=== PATIENT | female | born 1995 | race Caucasian/White ===

== ENCOUNTER 2016-07-05 18:40 | Emergency (ER) | payer OTHER ==
[~2016-07-05] VITALS: Ht 170.2 cm; Wt 78.0 kg
[~2016-07-05 18:40] MED LIST: BCPILLS PO; OMEP10CA2 PO
[2016-07-05 19:03] VITALS: BP 128/78; PULSE 57; TEMP 37; O2SAT 98; Ht 170.2 cm; Wt 78.0 kg
--- NOTE | 2016-07-05 20:08 | DIAGNOSTIC IMAGING REPORT ---
RIGHT ELBOW 3 VIEWS CLINICAL HISTORY: Right arm injury. FINDINGS: 3 views of the right elbow are obtained. No prior studies are available for comparison at the time of dictation. The skeletal structures are well mineralized. No fracture is seen. The joint spaces of the elbow are well-maintained. No joint effusion is identified. Mild soft tissue edema is seen posteriorly. IMPRESSION: Mild soft tissue swelling with no radiographic evidence of right elbow fracture. Electronically signed by: Eliseo Galvez M.D. 07/05/2016 8:06 PM Dictated Date/Time: 07/05/2016 8:05 PM
--- NOTE | 2016-07-05 20:09 | DIAGNOSTIC IMAGING REPORT ---
RIGHT FOREARM 2 VIEWS CLINICAL HISTORY: Right arm injury. FINDINGS: AP and lateral views of the right forearm are obtained. No prior studies are available for comparison at the time of dictation. The skeletal structures are well mineralized. No fracture is seen. The wrist and elbow joints appear maintained. Dorsal soft tissue edema is noted. IMPRESSION: Soft tissue swelling with no evidence of forearm fracture. Electronically signed by: Eliseo Galvez M.D. 07/05/2016 8:07 PM Dictated Date/Time: 07/05/2016 8:06 PM
--- NOTE | 2016-07-05 20:19 | EMERGENCY ROOM VISIT NOTE ---
ED Visit Note First contact with patient: 19:05 CHIEF COMPLAINT: Right Elbow injury HISTORY OF PRESENT ILLNESS: This 21-year-old female presents the ER with chief complaint of right elbow injury. The patient states that she fell Monday night injuring her right elbow. She states she went to an urgent care on Monday and they did an x-ray and told her they didn't "think it was broken". They placed her in a sling. The patient states that it is not getting any better. She denies any numbness and tingling in her fingers. The patient denies any prior injury to her right elbow. The patient denies any wrist or shoulder pain. The patient is right-hand dominant. She has never seen an orthopedic surgeon in the past. REVIEW OF SYSTEMS: 6 system review was performed and was negative unless stated otherwise in history of present illness. PMH: The patient is healthy; asthma, appendectomy SOCIAL HISTORY: Patient lives with her mother. The patient denies tobacco use but admits to occasional alcohol use. PHYSICAL EXAM: Vital Signs: Were reviewed Reviewed nurse's notes. GEN.: 21-year -old white female appears in no acute distress. MENTAL Status: Alert and oriented 3. RIGHT SHOULDER: No gross bony deformity noted. Nontender to palpation throughout. Full range of motion. RIGHT ELBOW: No gross bony deformity noted. The patient has tenderness to palpation over the olecranon process and slight tenderness palpation over the lateral epicondyle. Limited range of motion secondary to pain. RIGHT WRIST: No gross bony deformity noted. Full range of motion. The patient does have tenderness to palpation over the distal third of the ulna. EMERGENCY DEPARTMENT COURSE: The patient was evaluated. X-ray of the right elbow and right forearm for ordered and interpreted by the radiologist and myself. DIAGNOSTICS:RIGHT ELBOW 3 VIEWS CLINICAL HISTORY: Right arm injury. FINDINGS: 3 views of the right elbow are obtained. No prior studies are available for comparison at the time of dictation. The skeletal structures are well mineralized. No fracture is seen. The joint spaces of the elbow are well-maintained. No joint effusion is identified. Mild soft tissue edema is seen posteriorly. IMPRESSION: Mild soft tissue swelling with no radiographic evidence of right elbow fracture. Electronically signed by: Eliseo Galvez M.D. 07/05/2016 8:06 PM Dictated Date/Time: 07/05/2016 8:05 PM RIGHT FOREARM 2 VIEWS CLINICAL HISTORY: Right arm injury. FINDINGS: AP and lateral views of the right forearm are obtained. No prior studies are available for comparison at the time of dictation. The skeletal structures are well mineralized. No fracture is seen. The wrist and elbow joints appear maintained. Dorsal soft tissue edema is noted. IMPRESSION: Soft tissue swelling with no evidence of forearm fracture. Electronically signed by: Eliseo Galvez M.D. 07/05/2016 8:07 PM Dictated Date/Time: 07/05/2016 8:06 PM The patient was informed of the findings. The patient already has a sling from urgent care. The patient was informed of the findings and discharged home in stable condition. DIAGNOSIS: Right elbow and forearm contusion DISCHARGE INSTRUCTIONS & TREATMENT: Rest the arm in a sling until the pain subsides. Ibuprofen 600 mg every 6 hours with food for pain. If symptoms are not improving in 3-4 days, follow-up with your family doctor or orthopedics. Current/Historical Medications Scheduled Control Pills ( Control Pills), 1 TAB PO DAILY Allergies Coded Allergies: No Known Allergies (Unverified , 09/21/15) Vital Signs Date Time Temp Pulse Resp B/P Pulse Ox O2 Delivery O2 Flow Rate FiO2 07/05/16 19:03 37.0 57 18 128/78 98 Room Air Departure Information Referrals No Doctor, Assigned (PCP) Patient Instructions [facility]
== END 2016-07-05 20:32 | disposition home or self-care (01) ==
LOC: C.EDB 18:41 → C.EDD 20:32
DX: S59.901A Unspecified injury of right elbow, initial encounter (principal); W19.XXXA Unspecified fall, initial encounter; J45.909 Unspecified asthma, uncomplicated; Z90.49 Acquired absence of other specified parts of digestive tract; Z79.3 Long term (current) use of hormonal contraceptives

== ENCOUNTER → 2017-02-08 | Outpatient (CLI) | payer OTHER ==
[~2017-02-08] MED LIST changes: -OMEP10CA2 PO
== END | disposition home or self-care (01) ==
LOC: C.PAPS 12:59
PROVIDERS: ATTEND Nurse Practitioner Adult Health
DX: Z12.39 Encounter for other screening for malignant neoplasm of breast (principal)

== ENCOUNTER 2018-10-24 08:12 | Inpatient (IN) ==
--- NOTE | 2018-10-24 08:24 | History & Physical Report ---
Date of Service October 24, 2018 Assessment & Plan (1) Encounter for induction of labor: Pt is a 23 year old at 40+6 with a OBHx of RH negative status s/p rhogam at 28+1 on 07/27/2018, presenting for induction of labor /2 to post dates - FHT reassuring Cat 1 tracing - LR @ 125 - Pitocin 30 units in 500 mls @ 1 mls/hr -> up by 2 - Monitor FHT/toco - Monitor BP - Routine labor care - Anticipate Vaginal , Expectant management - Rhogam - Left calf pain likely MSK in origin, continue to monitor History of Present Illness Chief Complaint: IOL Primary Care Provider: NO PCP Pt is a 23 year old with lmp of 01/11/2018 and EDC of 10/18/2018 confirmed by 1st trimester ultrasound on 03/22/2018 at 9+4 who presents at 40+6 for induction of labor 07/21 post dates. Pt had kumar bulb placed in her cervix on the evening of 10/24/2018 to assist with cervical dilation. Kumar remained in place overnight. Currently she reports feeling regular contractions approximately 4 minutes apart, they are becoming progressively stronger. She currently denies nausea, vomiting, RUQ pain, swelling, headache, blurred vision, vaginal bleeding, n egative for rupture of membranes, or decreased movement. course was significant RH- mother, given Rhogam at 28+1 on 07/27/2018, plan to give second dose . Last cervical exam was 1/thick/high on 10/23/18, vertex presentation. Pt resting comfortably in bed no acute complaints with dad at the bedside, all questions were answered labs hCG Positive: 02/14/2018 First Visit: 8+5 Weight Gain: 20.3 lbs A- antibody neg Last HGB: 10.6 09/29/2018 DM screen:143 07/27/2018 GTT:FBS:79 1H:131 2H:106 08/13/2018 Rubella Immune HIV neg Pap neg @ [facility] 02/2017 Last U/S 07/23/18 echo: Liu Breech, no obvious abruption EFW 20% 1020gm, Normal Echo EGA:40+6 BP Range 102/80-130/86 U/A: No growth GBS negative RPR Negative HBsAG Negative GC/ Chlamydia negative Allergies Allergy/AdvReac Type Severity Reaction Status Date / Time No Known Allergies Allergy Verified 10/23/18 19:46 Patient History Medical History and not yet delivered Acute appendicitis (Resolved) Asthma Surgical History History of tonsillectomy Family History Other No significant family history Social History Preferred Language: Estonian Communication Ability: Effective Beliefs That Will Affect Care: None marital status: Single Current Living Situation: Significant Other Other Information That Helps Us Care for You: No Feels Safe at Home: Yes Smoking Status: Never smoker Second Hand Exposure: No Hx Alcohol Use: No Hx Substance Use: No OB History hCG Positive on 02/14/2018, not on BC at conception, taking PNV throughout [employer] History GYNHX: menarche @ 17, monthly cycles 30-35 days, normal amount and duration, neg pap, no hx PID or STDS PMHX: tonsillectomy, appendectomy, Asthma-Albuterol PRN Allergies: NKDA Physical Exam Constitutional: WD/WN, vitals as above no acute distress Eyes: normal visual santillan by confrontation Neck: normal visual inspection Respiratory: normal respiratory effort, lungs clear to auscultation Cardiovascular: RRR, no murmur, no edema Heart Sounds: normal S1 and normal S2 Extremities: + calf tenderness (left sided , likely msk in nature ); no pedal edema Gastrointestinal (Abdomen): gravid belly Skin: no rashes, warm and dry Psychiatric: A+Ox3, euthymic affect Results & Data Vital Signs (Past 12 Hours) Vital Signs Pulse BP 10/24/18 08:17 90 132/61 Code Status & VTE Plan Code Status Full Code VTE Prophylaxis Plan VTE Prophylaxis will be ordered: Yes Monitoring External Monitor HR 140 Accels present Decels none Variability moderate Contractions: present, regular, roughly every 4 minutes Cat 1 Supervising Physician Co-Signing Physician Notes Resident Physician Supervision Note: I interviewed and examined the patient. Discussed with Dr. Sandy Khan and agree with findings and plan as documented in the note. Any exceptions or clarifications are listed here: [None] Documented By: Frances Dasilva MD, FACOG Resident Activity Tracking Resident Involvement: Resident Care Provided Care Provided: Adult Hospital Medicine
[2018-10-24] MEDS ORDERED: LACTATED RINGER'S 1,000 ML IV PRN ×3 (08:57→19:55)
[2018-10-24] MEDS ORDERED: OXYTOCIN 30 UNITS/500 ML BAG IV PRN ×2 (08:57→08:58)
[2018-10-24] MEDS ORDERED: LACTATED RINGER'S 1,000 ML IV SCH (09:00)
[2018-10-24 09:27] LABS: Hematocrit (blood only) 31.3 % (37-47); Hemoglobin 10.1 g/dL (12.0-16.0); Mean Corpuscular Volume 77.3 fL (80-100); Mean Platelet Volume 10.6 fL (7.4-10.4); Platelet Count 202 K/uL (130-400); RDW Standard Deviation 42.4 fL (36.4-46.3); Red Blood Count 4.05 M/uL (4.2-5.4); White Blood Count 14.15 K/uL (4.8-10.8)
[2018-10-24 09:32] LABS: Mean Corpuscular Hgb Conc 32.3 g/dL (32-36)
[2018-10-24] MEDS ORDERED: ACETAMINOPHEN 325 MG TAB PO STA (16:23)
[2018-10-24] MEDS: LACTATED RINGER'S 1,000 ML IV SCH ×2 (17:33→20:06)
[2018-10-24] MEDS ORDERED: fentaNYL citrate 100 MCG/2 ML VIAL ONE (18:10)
[2018-10-24] MEDS ORDERED: BUPIVACAINE 0.25% 30 ML VIAL ONE (18:10)
[2018-10-24] MEDS ORDERED: ePHEDrine sulfate 50 MG/ML AMP ONE (18:10)
[2018-10-24] MEDS ORDERED: fentaNYL 2MCG/ML ROPIV 1.25MG/ML 100 ML BAG EPI ONE (18:11)
--- NOTE | 2018-10-24 18:39 | Anesthesiology Consultation ---
Date of Service October 24, 2018 Assessment & Plan Chart Review Chart Review: Acceptable Risk for Surgery and Patient NOT seen in Pre Admission Testing Consults Requested none ASA ASA2 Proposed Anesthesia Anesthesia Type: Labor Epidural Risk / Benefits Reviewed With: PT / POA / Parent / Guardian, Accepts Plan and Informed Consent Obtained History Height/Weight Height: 5 ft 5 in Weight: 97.069 kg Allergies Allergy/AdvReac Type Severity Reaction Status Date / Time No Known Allergies Allergy Verified 10/23/18 19:46 Medications Home Medications Medication Instructions Recorded Confirmed Last Taken vit-iron fum-folic ac 1 tab PO DAILY 10/24/18 10/24/18 10/23/18 21:00 [ Vitamin] Active Medications Generic Name Dose Route Start Last Admin Trade Name Freq PRN Reason Stop Dose Admin Oxytocin 30 units in 500 mls @ 11 mls/hr 10/24/18 08:58 10/24/18 15:00 Pitocin IV 10/26/18 08:57 0.66 units/hr .Q24H PRN 11 mls/hr Labor Induction/Augmentation Titration Protocol 0.66 UNITS/HR Lactated Ringer's 1,000 mls @ 125 mls/hr 10/24/18 09:15 10/24/18 17:33 Lr IV 11/23/18 09:14 125 mls/hr .Q8H CONRADO Administration Lactated Ringer's 1,000 mls @ 125 mls/hr 10/24/18 09:00 10/24/18 16:34 Lr IV 10/26/18 08:59 Infused .Q8H CONRADO Infusion Lactated Ringer's 1,000 mls @ 999 mls/hr 10/24/18 08:57 10/24/18 16:34 Lr IV 11/23/18 08:56 999 mls/hr .Q1H1M PRN Administration Pre-Anesthesia NPO Date Last Intake of Fluids: 10/24/18 Time Last Intake of Fluids: 07:00 Date Last Intake of Solids: 10/24/18 Time Last Intake of Solids: 07:00 Past Medical History Medical History and not yet delivered Acute appendicitis (Resolved) Asthma Exercise / Class Metabolic Activity II 4-5 Yardwork/Stairs/Walk up hill Past Family History Family History Other No significant family history Past Surgical History Surgical History History of tonsillectomy Past Anesthesia History No Hx of Anesthesia Complications and No Family Hx of Anesthesia Complications History of PONV No Hx of PONV and No Hx of Motion Sickness Social History Smoking Status: Never smoker Hx Alcohol Use: No Hx Substance Use: No substance use type: does not use Physical Exam Vital Signs Last Vital Signs Temp 36.8 C 10/24/18 15:03 Pulse 80 10/24/18 18:31 Resp 18 10/24/18 17:30 BP 112/64 10/24/18 18:09 Pulse Ox 98 10/24/18 18:31 Constitutional + obese ENMT Mouth: no dentition abnormality Thyromental Distance: > or= 3.5 Finger Breadths Mallampati Class: II Neck normal visual inspection and trachea midline; neck extension not limited Respiratory normal respiratory effort Auscultation: lungs clear to auscultation bilaterally Cardiovascular Rate/Rhythm: regular rate and regular rhythm Heart Sounds: no murmur Musculoskeletal Spine: lumbar spine normal to inspection; normal cervical ROM Neurologic moves all extremities Motor/Sensory: no sensory deficit Psychiatric Orientation: alert and oriented x 3 Testing Laboratory Results 10/24/18 09:16
[2018-10-24] MEDS ORDERED: DiphenhydrAMINE HCL 50 MG/ML VIAL IV PRN (19:55)
[2018-10-24] MEDS ORDERED: NALOXONE HCL 1 MG in SODIUM CHLORIDE 0.9% 1000ML 1,000 ML IV PRN (19:55)
[2018-10-24] MEDS ORDERED: NALBUPHINE HCL INJ 10 MG/ML AMP IV PRN (19:55)
[2018-10-24] MEDS ORDERED: ePHEDrine sulfate 50 MG/ML AMP IV PRN (19:55)
[2018-10-24] MEDS ORDERED: ONDANSETRON INJ 2 MG/ML 2 ML VIAL IV PRN (19:55)
[2018-10-24] MEDS ORDERED: NALOXONE HCL 0.4 MG/1 ML VIAL/CARP IV PRN (19:55)
[2018-10-25] MEDS: fentaNYL 2MCG/ML ROPIV 1.25MG/ML 100 ML BAG EPI PRN ×3 (01:57→06:25)
[2018-10-25] MEDS ORDERED: Nursing to Pharmacy Communication ONE (02:24)
[2018-10-25] MEDS: LACTATED RINGER'S 1,000 ML IV SCH (04:09)
--- NOTE | 2018-10-25 07:50 | Obstetrical Progress Note ---
Date of Service October 25, 2018 Assessment & Plan (1) Post term over 40 weeks: Patient will begin her second stage. Subjective Patient states that she is feeling Change of shift note: The patient is a 23-year-old 1 para 0 at 41 weeks gestational age who was admitted on 8 mainly for postdates induction. The patient has been on Pitocin with an intrauterine pressure catheter. Epidural was placed. heart rate tracing has been category 2. Patient states that she is feeling pressure with contractions Physical Exam Genitourinary: OB Exam Monitor Tracing: + category II and + normal FHT variability Cervix: Complete/(+)1 Results & Data Vital Signs (Past 12 Hours) Vital Signs Temp Pulse Resp BP Pulse Ox 10/25/18 07:45 126 H 150/88 H 10/25/18 07:43 104 H 97 10/25/18 07:38 100 H 97 10/25/18 07:33 101 H 99 10/25/18 07:30 88 128/71 10/25/18 07:28 96 H 95 10/25/18 07:23 101 H 96 10/25/18 07:18 104 H 97 10/25/18 07:14 95 H 143/81 H 10/25/18 07:13 96 H 97 10/25/18 07:10 98.4 F 18 10/25/18 07:08 101 H 96 10/25/18 07:03 94 H 97 10/25/18 07:00 96 H 136/68 10/25/18 06:58 89 95 10/25/18 06:53 99 H 99 10/25/18 06:48 88 94 10/25/18 06:44 88 118/57 L 10/25/18 06:43 88 94 10/25/18 06:38 92 H 96 10/25/18 06:33 87 95 10/25/18 06:29 90 18 116/60 10/25/18 06:28 102 H 95 10/25/18 06:23 111 H 95 10/25/18 06:18 103 H 95 10/25/18 06:16 18 10/25/18 06:15 107 H 117/56 L 10/25/18 06:13 88 96 10/25/18 06:08 97 H 96 10/25/18 06:03 86 93 10/25/18 05:59 83 111/61 10/25/18 05:58 82 95 10/25/18 05:53 86 93 10/25/18 05:48 88 96 10/25/18 05:44 99 H 118/65 10/25/18 05:43 95 H 95 10/25/18 05:38 101 H 96 10/25/18 05:34 98.6 F 97 H 20 94 10/25/18 05:33 96 H 96 10/25/18 05:29 104 H 118/67 10/25/18 05:28 98 H 97 10/25/18 05:23 99 H 96 10/25/18 05:18 90 95 10/25/18 05:15 18 10/25/18 05:14 98 H 121/65 10/25/18 05:13 96 H 97 10/25/18 05:12 110 H 93 10/25/18 05:08 91 H 95 10/25/18 05:06 93 H 94 10/25/18 05:03 84 95 10/25/18 05:00 86 113/63 94 10/25/18 04:58 87 95 10/25/18 04:55 83 94 10/25/18 04:53 91 H 95 10/25/18 04:48 90 96 10/25/18 04:45 87 16 116/69 10/25/18 04:43 86 96 10/25/18 04:38 89 97 10/25/18 04:33 99 H 96 10/25/18 04:32 92 H 112/58 L 10/25/18 04:28 90 97 10/25/18 04:23 94 H 97 10/25/18 04:18 90 97 10/25/18 04:14 90 120/62 10/25/18 04:13 92 H 97 10/25/18 04:10 97.9 F 18 10/25/18 04:08 107 H 97 10/25/18 04:03 111 H 16 97 10/25/18 03:59 103 H 128/60 10/25/18 03:58 98 H 95 10/25/18 03:57 97 H 94 10/25/18 03:53 105 H 95 10/25/18 03:51 105 H 92 10/25/18 03:48 100 H 96 10/25/18 03:44 99 H 120/58 L 10/25/18 03:43 96 H 95 10/25/18 03:39 91 H 94 10/25/18 03:38 94 H 95 10/25/18 03:33 94 H 94 10/25/18 03:29 96 H 117/59 L 10/25/18 03:28 91 H 95 10/25/18 03:27 93 H 94 10/25/18 03:23 95 H 94 10/25/18 03:21 93 H 94 10/25/18 03:18 90 94 10/25/18 03:16 93 H 94 10/25/18 03:15 89 117/59 L 10/25/18 03:13 91 H 95 10/25/18 03:09 87 94 10/25/18 03:08 88 94 10/25/18 03:03 96 H 95 10/25/18 03:02 92 H 94 10/25/18 02:59 90 115/59 L 10/25/18 02:58 89 95 10/25/18 02:54 93 H 94 10/25/18 02:53 86 94 10/25/18 02:48 88 96 10/25/18 02:45 94 H 123/69 10/25/18 02:44 87 91 10/25/18 02:43 99 H 97 10/25/18 02:38 88 95 10/25/18 02:33 85 95 10/25/18 02:30 86 18 118/62 10/25/18 02:28 79 97 10/25/18 02:23 92 H 96 10/25/18 02:18 84 97 10/25/18 02:14 92 H 132/72 10/25/18 02:13 89 99 10/25/18 02:12 98.4 F 87 18 93 10/25/18 02:08 85 100 10/25/18 02:03 91 H 99 10/25/18 01:59 91 H 106/58 L 10/25/18 01:58 81 97 10/25/18 01:53 83 98 10/25/18 01:48 84 98 10/25/18 01:44 90 105/57 L 10/25/18 01:43 82 97 10/25/18 01:38 79 97 10/25/18 01:34 98.2 F 18 10/25/18 01:33 82 98 10/25/18 01:29 97 H 112/58 L 10/25/18 01:28 85 98 10/25/18 01:23 90 96 10/25/18 01:18 84 96 10/25/18 01:14 100 H 113/58 L 10/25/18 01:13 81 96 10/25/18 01:08 74 97 10/25/18 01:03 81 96 10/25/18 01:00 88 16 115/57 L 10/25/18 00:58 89 96 10/25/18 00:53 84 96 10/25/18 00:48 85 95 10/25/18 00:44 98 H 16 117/58 L 10/25/18 00:43 106 H 97 10/25/18 00:38 108 H 97 10/25/18 00:33 81 96 10/25/18 00:29 94 H 16 115/56 L 10/25/18 00:28 71 96 10/25/18 00:23 76 97 10/25/18 00:18 79 95 10/25/18 00:15 91 H 122/59 L 10/25/18 00:13 82 96 10/25/18 00:08 86 97 10/25/18 00:03 74 96 10/25/18 00:01 86 16 110/56 L 10/24/18 23:58 78 95 10/24/18 23:53 83 96 10/24/18 23:48 69 96 10/24/18 23:45 73 113/55 L 10/24/18 23:43 74 97 10/24/18 23:38 71 97 10/24/18 23:37 98.2 F 18 10/24/18 23:33 82 96 10/24/18 23:29 88 112/55 L 10/24/18 23:28 78 97 10/24/18 23:23 79 96 10/24/18 23:18 80 96 10/24/18 23:14 84 16 119/61 10/24/18 23:13 82 97 10/24/18 23:08 80 96 10/24/18 23:03 77 96 10/24/18 22:59 81 113/60 10/24/18 22:58 85 96 10/24/18 22:55 92 H 94 10/24/18 22:53 75 98 10/24/18 22:48 83 96 10/24/18 22:45 85 129/70 10/24/18 22:43 100 H 96 10/24/18 22:38 80 98 10/24/18 22:33 98.2 F 82 18 97 10/24/18 22:29 73 117/61 10/24/18 22:28 81 97 10/24/18 22:23 72 96 10/24/18 22:18 73 97 10/24/18 22:15 73 114/59 L 10/24/18 22:13 77 97 10/24/18 22:08 77 97 10/24/18 22:03 72 98 10/24/18 22:00 72 107/56 L 10/24/18 21:58 70 97 10/24/18 21:53 71 97 10/24/18 21:48 75 97 10/24/18 21:45 71 111/56 L 10/24/18 21:43 79 97 10/24/18 21:38 84 97 10/24/18 21:33 90 97 10/24/18 21:29 89 147/70 H 10/24/18 21:28 92 H 98 10/24/18 21:23 83 97 10/24/18 21:18 79 97 10/24/18 21:15 83 16 109/66 10/24/18 21:13 88 97 10/24/18 21:08 82 97 10/24/18 21:05 98.2 F 18 10/24/18 21:03 80 96 10/24/18 21:00 85 118/60 10/24/18 20:58 86 98 10/24/18 20:53 95 H 97 10/24/18 20:48 85 98 10/24/18 20:46 89 139/77 10/24/18 20:43 86 97 10/24/18 20:38 89 97 10/24/18 20:33 91 H 97 10/24/18 20:30 77 113/57 L 10/24/18 20:28 83 18 97/53 L 97 10/24/18 20:23 86 97 10/24/18 20:22 77 130/63 10/24/18 20:18 92 H 97 10/24/18 20:16 86 126/75 10/24/18 20:13 96 H 98 10/24/18 20:10 98.4 F 88 123/68 10/24/18 20:08 92 H 97 10/24/18 20:07 90 126/70 10/24/18 20:04 91 H 124/57 L 10/24/18 20:03 86 95 10/24/18 20:01 93 H 124/59 L 10/24/18 19:58 92 H 131/62 96 10/24/18 19:55 86 118/59 L 10/24/18 19:53 96 H 96 10/24/18 19:51 97 H 120/62 10/24/18 19:49 101 H 127/70 10/24/18 19:48 98.1 F 93 H 16 96
[2018-10-25] MEDS ORDERED: OXYCODONE/ACETAMINOPHEN 5mg/325mg TAB PO PRN (09:30)
[2018-10-25] MEDS ORDERED: SUPERCREAM 0.870% 15 GM JAR EXT PRN (09:30)
[2018-10-25] MEDS ORDERED: OXYTOCIN 30 UNITS/500 ML BAG IV PRN (09:30)
[2018-10-25] MEDS ORDERED: ACETAMINOPHEN 325 MG TAB PO PRN (09:30)
[2018-10-25] MEDS ORDERED: BISACODYL 10 MG SUPP PR PRN (09:30)
[2018-10-25] MEDS ORDERED: HYDROCORTISONE ACETATE 25 MG SUPP PR PRN (09:30)
[2018-10-25] MEDS ORDERED: BENZOCAINE 20% AER SPR 82.5 GM CAN EXT PRN (09:30)
--- NOTE | 2018-10-25 09:43 | Anesthesia Procedure Note ---
Date of Service October 25, 2018 Anesthesia Post Epidural Note Vital Signs Vital Signs: Temp Pulse Resp BP Pulse Ox 36.9 C 98 H 18 129/61 99 10/25/18 07:10 10/25/18 09:33 10/25/18 07:10 10/25/18 09:16 10/25/18 09:33 Pain Intensity Bilateral Lower Abdomen: Pain Intensity: 0 Notes Mental Status: alert / awake / arousable and participated in evaluation Nausea / Vomiting: adequately controlled Pain: adequately controlled Airway Patency, RR, SpO2: stable & adequate BP & HR: stable & adequate Hydration State: stable & adequate Neuraxial Anesthesia: was administered and sensory block is resolving Anesthetic Complications: no major complications apparent Epidural: Removed without complications and With tip intact
[2018-10-25] MEDS: IBUPROFEN 600 MG TAB PO PRN (12:20)
--- NOTE | 2018-10-25 13:03 | Delivery Summary ---
DATE OF OPERATION: 10/25/2018 The patient is a 23-year-old 1, P0, EDC of 10/18/2018 who presented for induction because of post-dates . She received a cervical balloon placement the night of 10/23. She represented to labor and delivery for continuance of the induction. She was begun on Pitocin augmentation of her labor. Membranes were ruptured for copious amount of clear fluid after her epidural analgesia was effective. An IUPC was placed to ensure uterine contractions were consistently strong enough. She progressed to full dilation and pushed effectively over intact perineum for delivery of a viable female infant. There was a true knot noted in the cord. Rest of delivered easily and was placed on mother's abdomen for further attention and drying. The infant was vigorous and crying and moving all 4 limbs. After 30 seconds, the cord was clamped and cut. After cord blood was obtained, the placenta was expressed intact with 3-vessel cord. A first-degree perineal laceration was repaired with 3-0 chromic in the usual fashion and 1% lidocaine to anesthetize the area. There was bilateral superficial abrasions of the labia minora that were not bleeding and therefore not repaired. Estimated blood loss was 250 mL. Mother and infant are doing well after delivery. Dilute Pitocin was used for control of bleeding. I attest to the content of the Intraoperative Record and any orders documented therein. Any exception s are noted below.
[2018-10-25] MEDS: DOCUSATE SODIUM 100 MG CAP PO SCH (20:27)
[2018-10-26] MEDS: IBUPROFEN 600 MG TAB PO PRN ×3 (03:42→13:44)
--- NOTE | 2018-10-26 07:23 | Obstetrical Progress Note ---
Date of Service October 26, 2018 Assessment & Plan (1) Status post vaginal delivery: Patient is a 23 year old PPD 1 s/p -Vital signs WNL bp 107/61 T37.1, -[id number] on admission. no si/sx of anemia. -Pt is doing clinically well -Continue to encourage ambulation as tolerated, Monitor and control pain with motrin prn, Continue diet as tolerated. -Continue to support and encourage breast feeding -Routine care Supervising Physician Co-Signing Physician Notes Resident Physician Supervision Note: I was present with Dr. Khan during the history and exam. I discussed the case with the resident and agree with the findings and plan as documented in the note. Any exceptions or clarifications are listed here: Routine care, doing well Documented By: Jc Underwood Jr, MD, FACOG Subjective Patient sitting up in bed feeding baby this orning. Patient reports no acute events overnigh. Patient is tolerating her diet, ambulating, passing gas and voiding, no bm. Reports moderate lochia. Denies H/A, chest pain, palpitations and uti syx. Answered all questions, no concerns at present, pain is well controlled Physical Exam Physical Exam: deferred 2/2 to pt request as she was feeding her baby Constitutional: WD/WN, vitals as above Eyes: normal visual santillan by confrontation Results & Data Vital Signs (Past 12 Hours) Vital Signs Temp Pulse Resp BP Pulse Ox 10/26/18 03:30 37.1 C 88 18 107/61 97 10/26/18 00:50 37.0 C 98 H 18 114/67 96 Resident Activity Tracking Resident Involvement: Resident Care Provided Care Provided: Adult Hospital Medicine
[2018-10-26 07:26] LABS: Hematocrit (blood only) 23.1 % (37-47); Hemoglobin 7.5 g/dL (12.0-16.0); Mean Corpuscular Hgb Conc 32.5 g/dL (32-36); Platelet Count 172 K/uL (130-400); RDW Coefficient of Variation 15.2 % (11.5-14.5); RDW Standard Deviation 43.3 fL (36.4-46.3); White Blood Count 17.01 K/uL (4.8-10.8)
[2018-10-26] MEDS: PRENATAL VITAMIN 1 TAB PO SCH (08:35)
[2018-10-26] MEDS: DOCUSATE SODIUM 100 MG CAP PO SCH ×2 (08:35→20:34)
[2018-10-26] MEDS ORDERED: DIPHTHERIA/TETANUS/PERTUSSIS 0.5 ML SYR/VIAL IM ONE (09:00)
--- NOTE | 2018-10-26 14:00 | Anesthesiology Progress Note ---
Date of Service October 26, 2018 Anesthesia Post Procedure Vital Signs Vital Signs: Temp Pulse Pulse Resp BP BP Pulse Ox 10/26/18 09:27 36.7 C 89 16 117/64 97 10/26/18 08:00 36.7 C 89 75 16 117/64 119/56 L 97 10/26/18 03:30 37.1 C 88 18 107/61 97 10/26/18 00:50 37.0 C 98 H 18 114/67 96 10/25/18 19:20 36.7 C 94 H 18 108/59 L 10/25/18 15:05 36.7 C 84 18 120/64 Pain Intensity Bilateral Lower Abdomen: Pain Intensity: 4 Transfer of Care Handoff Completed per policy Notes Mental Status: alert / awake / arousable and participated in evaluation Pain: adequately controlled Airway Patency, RR, SpO2: stable & adequate BP & HR: stable & adequate Hydration State: stable & adequate Neuraxial Anesthesia: was administered and sensory block resolved Anesthetic Complications: no major complications apparent and Pt Satisfied with anesthetic care Notes: Pt has been up walking without numbness, tingling or weakness in her legs. She reports some heaviness in her bottom - but this is unlikely to be from the epidural. Epidural site is clean and without evidence of bruising, bleeding or infection. The insertion site is tender, but the remainder of the patient's back is nontender to palpation. She denies headache. She reports that the epidural worked well and controlled her pain throughout labor and delivery. She does not have any questions or concerns at this time. Pt was instructed to contact the anesthesia department if she develops any future questions or concerns.
[2018-10-26] MEDS ORDERED: BISACODYL 5 MG TABEC PO SCH (20:00)
[2018-10-27] MEDS: IBUPROFEN 600 MG TAB PO PRN ×2 (02:59→11:38)
--- NOTE | 2018-10-27 06:27 | Obstetrical Progress Note ---
Date of Service October 27, 2018 Assessment & Plan (1) Status post vaginal delivery: ready for d/c home. fundus firm and contracted. instructions reviewed. f/u 6 wk pp check. Day #:: 2 Subjective Ambulation: ambulating normally Voiding: no voiding problems Diet Tolerance:: regular diet Lochia:: Small Feeding Type:: breast feeding doing well. ready to go home. had rhogam. breast feeding. Physical Exam Vital Signs (Past 24 Hours) Last Vital Signs Temp 98.1 F 10/27/18 00:45 Pulse 78 10/27/18 00:45 Resp 16 10/27/18 00:45 BP 111/63 10/27/18 00:45 Pulse Ox 96 10/27/18 00:45 Constitutional WD/WN, vitals as above Respiratory normal respiratory effort, lungs clear to auscultation Cardiovascular Rate/Rhythm: regular rate and regular rhythm Gastrointestinal (Abdomen) Inspection/Auscultation: abdomen normal to inspection Percussion/Palpation: abdomen soft fundus firm 1 above umbilicus, was higher before void. c/w other exam. Musculoskeletal nt calves. Psychiatric A+Ox3, euthymic affect
[2018-10-27 06:42] LABS: Hematocrit (blood only) 23.4 % (37-47); Hemoglobin 7.6 g/dL (12.0-16.0)
[2018-10-27] MEDS: DOCUSATE SODIUM 100 MG CAP PO SCH (09:25)
[2018-10-27] MEDS: PRENATAL VITAMIN 1 TAB PO SCH (09:25)
== END 2018-10-27 12:25 | disposition home or self-care (01) | DRG 807 ==
LOC: 4S1 08:12 → 4S2 10-25 12:11

== ENCOUNTER 2018-11-08 11:35 | Observation (INO) ==
[~2018-11-08 11:35] MED LIST changes: -BCPILLS PO; +METHYLERGONOVINE MALEATE 0.2 MG TAB PO SCH
--- NOTE | 2018-11-08 11:58 | Emergency Department Note ---
History of Present Illness General Chief complaint: Vaginal Bleeding Stated complaint: HEAVY BLEEDING Time Seen by Provider: 11/08/18 11:40 History of Present Illness This 23-year-old female presents to the ER with chief complaint of vaginal bleeding. The patient delivered her daughter vaginally on October 25. She states since that time she has had vaginal bleeding but last night and this morning she had a large amount of vaginal bleeding with some clots. She called her [employer] and they instructed her to come to the ER. The patient states she had some mild cramping with the vaginal bleeding but not now. She denies any nausea or vomiting. The patient denies any history of endometriosis or fibro ids. Home Medications Home Medications Medication Instructions Recorded Confirmed Type Vitamin 1 tab PO DAILY 10/24/18 11/08/18 History Allergies Allergy/AdvReac Type Severity Reaction Status Date / Time No Known Allergies Allergy Verified 11/08/18 12:01 Past Med/Surg History Medical History and not yet delivered (Resolved) Acute appendicitis (Resolved) Asthma Surgical History History of tonsillectomy Family History Other No significant family history Social History Preferred Language: American Communication Ability: Effective Beliefs That Will Affect Care: None marital status: Single Current Living Situation: Significant Other Feels Safe at Home: Yes Smoking Status: Never smoker Second Hand Exposure: No Hx Alcohol Use: No Hx Substance Use: No Review of Systems A total of 10 systems reviewed and were otherwise negative Physical Exam Vital Signs Vital Signs - 24 hr 11/08/18 11:37 11/08/18 14:06 Temperature 36.5 C Temperature Source Oral Sepsis Recent Fever Within 48 Hours No Sepsis Action Taken by Nursing No Action Required Pulse Rate 78 Pulse Rate [Right Finger] 72 Pulse Rhythm Regular Pulse Strength Normal Respiratory Rate 18 18 Respiratory Effort / Characteristics Non-Labored Spontaneous Non-Labored Spontaneous Respiratory Depth Normal Normal Respiratory Pattern Regular Blood Pressure 134/82 Blood Pressure [Right Arm] 128/78 Blood Pressure Mean 99 Blood Pressure Mean [Right Arm] 94 Blood Pressure Position Sitting Blood Pressure Position [Right Arm] Lying Pulse Oximetry 98 98 Oxygen Delivery Method Room Air Room Air GENERAL: 23-year-old white female appears in no acute distress. MENTAL Status: Alert and oriented x3. EYES: Conjunctiva without paleness noted. MOUTH: Mucosa is moist NECK: Supple, no lymphadenopathy noted. No carotid bruits noted. LUNGS: Clear auscultation without wheezes rales or rhonchi. CARDIAC: Regular rate and rhythm without murmur. Pulses is full and equal throughout. BACK: No CVA tenderness noted. ABDOMEN: Positive bowel sounds all 4 quadrants. Soft, mild tenderness palpation just inferior to the umbilicus otherwise nontender to palpation without organomegaly or masses. EXTREMITIES: No cyanosis or edema noted. Medical Decision Making Differential Diagnosis Retained placenta, endometriosis, fibroid Medical Records Attestation: I reviewed the patient's medical records. Home Medications Current Medication List: was personally reviewed by me Laboratory Data Attestation: I reviewed the patient's lab results. Result diagrams: 11/08/18 12:16 11/08/18 12:16 Lab Results 11/08/18 11/08/18 Range/Units 12:16 12:16 WBC 7.40 (4.8-10.8) K/uL RBC 3.97 L (4.2-5.4) M/uL Hgb 9.6 L (12.0-16.0) g/dL Hct 30.5 L (37-47) % MCV 76.8 L (80-100) fL MCH 24.2 L (25-34) pg MCHC 31.5 L (32-36) g/dL RDW Std Deviation 43.2 (36.4-46.3) fL RDW Coeff of Sherri 15.2 H (11.5-14.5) % Plt Count 374 (130-400) K/uL MPV 9.4 (7.4-10.4) fL Immature Gran % (Auto) 0.3 % Neut % (Auto) 67.5 % Lymph % (Auto) 26.4 % Calvert % (Auto) 3.1 % Eos % (Auto) 2.3 % Baso % (Auto) 0.4 % Immature Gran # (Auto) 0.02 (0.00-0.02) K/uL Neut # (Auto) 5.00 (1.4-6.5) K/uL Lymph # (Auto) 1.95 (1.2-3.4) K/uL Calvert # (Auto) 0.23 (0.11-0.59) K/uL Eos # (Auto) 0.17 (0-0.5) K/uL Baso # (Auto) 0.03 (0-0.2) K/uL Sodium 137 (136-145) mmol/L Potassium 3.9 (3.5-5.1) mmol/L Chloride 106 (98-107) mmol/L Carbon Dioxide 25 (21-32) mmol/L Anion Gap 6.0 (3-11) BUN 15 (7-18) mg/dl Creatinine 0.69 (0.6-1.2) mg/dl Est Cr Clr Drug Dosing 136.0 ml/min Est GFR ( Amer) 143.2 Est GFR (Non-Af Amer) 123.6 BUN/Creatinine Ratio 21.9 H (10-20) Glucose 81 (70-99) mg/dl Calcium 9.0 (8.5-10.1) mg/dl Phosphorus 3.5 (2.5-4.9) mg/dl Total Bilirubin 0.4 (0.2-1) mg/dl AST 11 L (15-37) U/L ALT 18 (12-78) U/L Alkaline Phosphatase 107 (45-117) U/L Total Protein 6.9 (6.4-8.2) gm/dl Albumin 3.1 L (3.4-5.0) gm/dl Globulin 3.8 (2.5-4.0) gm/dl Albumin/Globulin Ratio 0.8 L (0.9-2) Imaging Data Attestation: I personally reviewed and interpreted this imaging study as follows: Radiologist's Impression: S pelvic complete HISTORY: 23 years-old Female vaginal bleeding acute vaginal bleeding COMPARISON: Pelvic ultrasound 03/22/2018 TECHNIQUE: Multiple real-time sonographic images of the deep pelvic structures were obtained transabdominally assessing grayscale appearance, color and spectral flow FINDINGS: Anteflexed uterus appears heterogeneous and enlarged compatible with state and measures 14.9 x 6.4 x 9.1 cm. Endometrium is echogenic measuring 1.8 cm. Increased flow is noted about the fundal endometrium on several images suggestive of associated normal vascularity. Right ovary measures 2.1 x 1.4 x 2.1 cm and is unremarkable with arterial inflow and venous outflow documented. The left ovary measures 3.6 x 1.5 x 3.5 cm and is also unremarkable with arterial inflow and venous outflow documented. No significant free pelvic fluid. There is in ill-defined 1.3 x 0.9 cm het erogeneous mixed echogenicity focus about the mid endometrium with areas of internal flow noted suggestive of retained products of conception. IMPRESSION: 1. Findings suggest small focus of retained products of conception. Follow-up recommended. 2. Unremarkable sonographic appearance of the ovaries. The above report was generated using voice recognition software. It may contain grammatical, syntax or spelling errors. Electronically signed by: Basilio Hill M.D. 11/08/2018 2:11 PM Dictated: 11/08/18 1405 Transcribed: 11/08/18 1405 Blood Pressure Blood Pressure Findings: Normal blood pressure MDM Narrative The patient was evaluated. IV access was obtained. CBC and differential, renal profile was ordered. Pelvic ultrasound was ordered interpreted by the radiologist and myself as above. Labs were reviewed. The patient white count was normal. The patient's hemoglobin was 9.6 compared to 7.6 on October 27. Her hematocrit was 30.5 as compared to 23.4 on October 27. This is improving since her delivery of her daughter. Remainder labs are unremarkable. Ultrasound revealed a 1.3 x 0.9 cm heterogeneous mixed echogenicity in the mid endometrium suggestive of retained products of conception. Dr. Peres was consulted and she came to evaluate the patient. She is going to take the patient to the OR today. The patient is in agreement with treatment plan. Impression & Plan Hemorrhage due to retained products of conception Discharge Plan Visit Data Chief Complaint: Vaginal Bleeding Stated Complaint: HEAVY BLEEDING ED Provider: Gee Hurd ED Midlevel Provider: Anjana Mcrae Discharge Problem: Hemorrhage due to retained products of conception Patient Disposition: Admitted As Inpatient Condition: Good Forms Stand Alone Forms: My [employer] Prescriptions Prescriptions: No Action Vitamin 27 mg iron- 0.8 mg Tablet 1 tab PO DAILY RF: 0 Referrals Referrals: Sander Saab [Primary Care Provider] -
[2018-11-08 12:23] LABS: Basophils # (auto) 0.03 K/uL (0-0.2); Basophils % (auto) 0.4 %; Eosinophils # (auto) 0.17 K/uL (0-0.5); Eosinophils % (auto) 2.3 %; Hematocrit (blood only) 30.5 % (37-47); Hemoglobin 9.6 g/dL (12.0-16.0); Immature Granulocytes # (auto) 0.02 K/uL (0.00-0.02); Immature Granulocytes % (auto) 0.3 %; Lymphocytes # (auto) 1.95 K/uL (1.2-3.4); Lymphocytes % (auto) 26.4 %; Mean Corpuscular Hgb Conc 31.5 g/dL (32-36); Mean Corpuscular Volume 76.8 fL (80-100); Mean Platelet Volume 9.4 fL (7.4-10.4); Monocytes # (auto) 0.23 K/uL (0.11-0.59); Monocytes % (auto) 3.1 %; Neutrophils % (auto) 67.5 %; Platelet Count 374 K/uL (130-400); RDW Coefficient of Variation 15.2 % (11.5-14.5); RDW Standard Deviation 43.2 fL (36.4-46.3); Red Blood Count 3.97 M/uL (4.2-5.4)
[2018-11-08 12:47] LABS: Albumin Level 3.1 gm/dl (3.4-5.0); BUN Creatinine Ratio 21.9 (10-20); Est GFR (African American) 143.2; Est GFR (Non-African American) 123.6; Potassium 3.9 mmol/L (3.5-5.1)
[2018-11-08 12:50] LABS: Albumin Globulin Ratio 0.8 (0.9-2); Bilirubin,Total 0.4 mg/dl (0.2-1); Globulin 3.8 gm/dl (2.5-4.0); Phosphorus 3.5 mg/dl (2.5-4.9); Total Protein 6.9 gm/dl (6.4-8.2)
--- NOTE | 2018-11-08 14:12 | Ultrasound Report ---
US pelvic complete HISTORY: 23 years-old Female vaginal bleeding acute vaginal bleeding COMPARISON: Pelvic ultrasound 03/22/2018 TECHNIQUE: Multiple real-time sonographic images of the deep pelvic structures were obtained transabd ominally assessing grayscale appearance, color and spectral flow FINDINGS: Anteflexed uterus appears heterogeneous and enlarged compatible with state and measures 14 .9 x 6.4 x 9.1 cm. Endometrium is echogenic measuring 1.8 cm. Increased flow is noted about the stella l endometrium on several images suggestive of associated normal vascularity. Right ovary measures 2.1 x 1.4 x 2.1 cm and is unremarkable with arterial inflow and venous outflow d ocumented. The left ovary measures 3.6 x 1.5 x 3.5 cm and is also unremarkable with arterial inflow a nd venous outflow documented. No significant free pelvic fluid. There is in ill-defined 1.3 x 0.9 cm heterogeneous mixed echogenicity focus about the mid endometrium with areas of internal flow noted maya ggestive of retained products of conception. IMPRESSION: 1. Findings suggest small focus of retained products of conception. Follow-up recommended. 2. Unremarkable sonographic appearance of the ovaries. The above report was generated using voice recognition software. It may contain grammatical, syntax o r spelling errors. Electronically signed by: Basilio Hill M.D. 11/08/2018 2:11 PM
[2018-11-08] MEDS ORDERED: DOXYCYCLINE HYCLATE 100 MG CAP PO STA ×3 (15:42→18:33)
--- NOTE | 2018-11-08 15:44 | History & Physical Report ---
Date of Service November 08, 2018 Assessment & Plan (1) Status post vaginal delivery: Offered expectant management vs. D&C/E. r/b/se of both discussed . She wishes to proceed with surgery. The risks were discussed including bleeding requiring transfusion, infection, perforation of the uterus, need for further surgery as damage to surrounding structures, continued bleeding. Discussed the risk with any surgery including heart attack, blood clot, stroke , . Plan to go to the OR for D&C/E under ultrasound guidance to make sure all tissue is removed. consent reviewed and signed. History of Present Illness Chief Complaint: heavy vaginal bleeding Primary Care Provider: Sander Suero is a 23yowf who had an uncomplicated vaginal delivery on 10/25. She had very little bleeding PP. Last night she had sudden onset of very heavy bleeding where she filled 3 large pads in less than 5 minutes. this persisted for about 15 min and then stopped. Called the doctor detective automobile section and told to take ibuprofen. She had another episode of this type of bleeding this am and was instructed to come to the ED. Now she feels well. Has noted very little bleeding since the epidsode this am. Notes she has had a small amount of cramping just after both episodes, but none now. Notes no f/c/n/v. She is bottle feeding. H/H shows 9.6/30.5, improved from delivery, wbc-9.77 US--uterus c/w pp state, EM thickened 1.8cm with vasularity at the top most c/w retained poc. Allergies Allergy/AdvReac Type Severity Reaction Status Date / Time No Known Allergies Allergy Verified 11/08/18 12:01 Home Medications Home Medications Medication Instructions Recorded Confirmed Type Vitamin 1 tab PO DAILY 10/24/18 11/08/18 History Patient History Medical History and not yet delivered (Resolved) Acute appendicitis (Resolved) Asthma Surgical History History of tonsillectomy Family History Other No significant family history Social History Preferred Language: Chinese Communication Ability: Effective Beliefs That Will Affect Care: None marital status: Single Current Living Situation: Significant Other Feels Safe at Home: Yes Smoking Status: Never smoker Second Hand Exposure: No Hx Alcohol Use: No Hx Substance Use: No OB History as noted above 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 no observable active bleeding. Results & Data Vital Signs (Past 12 Hours) Vital Signs Temp Pulse Pulse Resp BP BP Pulse Ox 11/08/18 14:06 72 18 128/78 98 11/08/18 11:37 36.5 C 78 18 134/82 98
[2018-11-08] MEDS ORDERED: LACTATED RINGER'S 1,000 ML IV SCH ×2 (16:00→16:45)
[2018-11-08] MEDS ORDERED: MIDAZOLAM HCL 1 MG/ML 2ML VIAL ONE (16:02)
[2018-11-08] MEDS ORDERED: fentaNYL citrate 100 MCG/2 ML VIAL ONE (16:02)
--- NOTE | 2018-11-08 16:03 | Anesthesiology Consultation ---
Date of Service November 08, 2018 Assessment & Plan (1) Encounter for pre-operative examination: Chart Review Chart Review: Acceptable Risk for Surgery Consults Requested none ASA ASA2 Proposed Anesthesia Anesthesia Type: General Risk / Benefits Reviewed With: PT / POA / Parent / Guardian, Accepts Plan and Informed Consent Obtained History Surgery Operation Date: 11/08/18 15:05 Proposed Procedures p Dilation, Curretage and Evacuation - Lillie Peres MD, FACOG Height/Weight Height: 5 ft 5 in Weight: 82.9 kg Allergies Allergy/AdvReac Type Severity Reaction Status Date / Time No Known Allergies Allergy Verified 11/08/18 16:19 Medications Home Medications Medication Instructions Recorded Confirmed Last Taken Vitamin 1 tab PO DAILY 10/24/18 11/08/18 10/23/18 21:00 NPO Date Last Intake of Fluids: 11/08/18 Time Last Intake of Fluids: 13:30 Date Last Intake of Solids: 11/07/18 Time Last Intake of Solids: 20:00 Past Medical History Medical History and not yet delivered (Resolved) Acute appendicitis (Resolved) GERD (gastroesophageal reflux disease) Asthma Exercise / Class Metabolic Activity II 4-5 Yardwork/Stairs/Walk up hill Past Family History Family History Other No significant family history Past Surgical History Surgical History S/P appendectomy History of tonsillectomy Past Anesthesia History No Hx of Anesthesia Complications and No Family Hx of Anesthesia Complications History of PONV No Hx of PONV and No Hx of Motion Sickness Social History Smoking Status: Never smoker Hx Alcohol Use: No Hx Substance Use: No substance use type: does not use Physical Exam Vital Signs Last Vital Signs Temp 98.6 F 11/08/18 16:10 Pulse 71 11/08/18 16:10 Resp 14 11/08/18 16:10 BP 113/76 11/08/18 16:10 Pulse Ox 99 11/08/18 16:10 ENMT Mouth: no dentition abnormality Thyromental Distance: > or= 3.5 Finger Breadths Mallampati Class: II Neck normal visual inspection Respiratory normal respiratory effort Auscultation: lungs clear to auscultation bilaterally Cardiovascular Rate/Rhythm: regular rate and regular rhythm Testing Laboratory Results 11/08/18 12:16 11/08/18 12:16
[2018-11-08] MEDS ORDERED: METHYLERGONOVINE MALEATE 0.2 MG/ML AMP ONE (16:12)
[2018-11-08] MEDS ORDERED: ePHEDrine sulfate 50 MG/ML AMP IV PRN (16:21)
[2018-11-08] MEDS ORDERED: ATROPINE SULFATE 0.1 MG/ML 10ML SYR IV PRN (16:21)
[2018-11-08] MEDS ORDERED: fentaNYL citrate 100 MCG/2 ML VIAL IV PRN (16:21)
[2018-11-08] MEDS ORDERED: ONDANSETRON INJ 2 MG/ML 2 ML VIAL IV PRN (16:21)
[2018-11-08] MEDS ORDERED: LIDOCAINE HCL 2% 2 ML VIAL/AMP(20MG/ML) INFIL ONE (16:41)
[2018-11-08] MEDS ORDERED: PROPOFOL IV EMULSION 10 MG/ML 20 ML VIAL IV ONE (16:41)
[2018-11-08] MEDS ORDERED: SUCCINYLCHOLINE CHLORIDE 20 MG/ML 10 ML VIAL ONE (16:41)
[2018-11-08] MEDS ORDERED: ONDANSETRON INJ 2 MG/ML 2 ML VIAL ONE (16:41)
[2018-11-08] MEDS ORDERED: DEXAMETHASONE SOD INJ 4 MG/ML VIAL ONE (16:41)
[2018-11-08] MEDS ORDERED: ROCURONIUM BROMIDE 10 MG/ML 5 ML VIAL ONE (16:41)
[2018-11-08] MEDS ORDERED: ACETAMINOPHEN 650 MG SUPP PR PRN (16:45)
[2018-11-08] MEDS ORDERED: KETOROLAC 30 MG/ML VIAL IV PRN ×2 (16:45)
[2018-11-08] MEDS ORDERED: IBUPROFEN 200 MG TAB PO PRN (16:45)
[2018-11-08] MEDS ORDERED: MoRPHine SULFATE 4 MG/ML 1 ML CARP\\VIAL IV PRN (16:45)
[2018-11-08] MEDS ORDERED: ACETAMINOPHEN 325 MG TAB PO PRN (16:45)
[2018-11-08] MEDS ORDERED: MoRPHine SULFATE 10 MG/ML CARP/VIAL IV PRN (16:45)
[2018-11-08] MEDS ORDERED: KETOROLAC 30 MG/ML VIAL ONE (16:45)
[2018-11-08] MEDS ORDERED: OXYCODONE/ACETAMINOPHEN 5mg/325mg TAB PO PRN ×2 (16:45)
[2018-11-08] MEDS ORDERED: IBUPROFEN 600 MG TAB PO PRN (16:45)
[2018-11-08] MEDS ORDERED: MoRPHine SULFATE 2 MG/ML CARP IV PRN (16:45)
--- NOTE | 2018-11-08 16:45 | Post Operative Brief Note ---
Immediate Post Op Note v1 Date of Surgery November 08, 2018 Pre & Post Diagnosis Operation Date: 11/08/18 15:05 Pre-Op Diagnosis: Post Delivery probable retained products of conception Post-Op Diagnosis: Post Delivery retained products of conception Procedure Operation Date: 11/08/18 15:05 Actual Procedures p Dilation, Curretage and Evacuation with Guided Ultrasound - Lillie Peres MD, FACOG Surgeon Lillie Peres MD, FACOG Private Household Worker none Estimated Blood Loss 125 Findings Consistent with Post-Op Diagnosis
--- NOTE | 2018-11-08 17:30 | Anesthesiology Progress Note ---
Date of Service November 08, 2018 Anesthesia Post Procedure Vital Signs Vital Signs: Temp Pulse Pulse Resp BP BP Pulse Ox 11/08/18 17:25 37.1 C 57 L 20 101/59 L 99 11/08/18 17:15 53 L 16 97/53 L 100 11/08/18 17:05 61 17 100/57 L 100 11/08/18 16:56 36.8 C 75 16 88/71 L 99 11/08/18 16:10 37 C 71 14 113/76 99 11/08/18 16:00 62 18 114/63 98 11/08/18 15:57 62 18 114/63 98 11/08/18 14:06 72 18 128/78 98 11/08/18 11:37 36.5 C 78 18 134/82 98 Transfer of Care Handoff Completed per policy Notes Mental Status: alert / awake / arousable Patient Amnestic to Procedure: Yes Nausea / Vomiting: adequately controlled Pain: adequately controlled Airway Patency, RR, SpO2: stable & adequate BP & HR: stable & adequate Hydration State: stable & adequate Anesthetic Complications: no major complications apparent
[2018-11-08] MEDS ORDERED: CARBOPROST TROMETHAMINE 250 MCG/ML AMPUL IM ONE (18:40)
--- NOTE | 2018-11-08 18:51 | Communication Note ---
Date of Service: November 08, 2018 Was called by [facility] about concern for bleeding. Apparently has been through three pads since the OR. Evaluated patient. Vitals stable. Patient has a saturated pad but her chux is not. ON exam, there is not clot in the vagina. AM able to place a finger through cervix and can feel some clot in the uterus and a small bit of clot extruded with a slight, dark gush after exam. Firm pressure on the uterus and nothing further. Will give hemebate and check labs including vWD labs. Will continue to monitor closely.
[2018-11-08 19:23] LABS: Basophils # (auto) 0.03 K/uL (0-0.2); Basophils % (auto) 0.3 %; Eosinophils # (auto) 0.09 K/uL (0-0.5); Eosinophils % (auto) 0.9 %; Hematocrit (blood only) 29.6 % (37-47); Hemoglobin 9.6 g/dL (12.0-16.0); Immature Granulocytes # (auto) 0.02 K/uL (0.00-0.02); Immature Granulocytes % (auto) 0.2 %; Lymphocytes # (auto) 1.49 K/uL (1.2-3.4); Lymphocytes % (auto) 15.1 %; Mean Corpuscular Volume 76.1 fL (80-100); Mean Platelet Volume 9.7 fL (7.4-10.4); Neutrophils # (auto) 8.16 K/uL (1.4-6.5); Neutrophils % (auto) 82.5 %; Platelet Count 396 K/uL (130-400); RDW Coefficient of Variation 15.2 % (11.5-14.5); RDW Standard Deviation 42.8 fL (36.4-46.3); Red Blood Count 3.89 M/uL (4.2-5.4); White Blood Count 9.89 K/uL (4.8-10.8)
[2018-11-08 19:26] LABS: Mean Corpuscular Hgb Conc 32.4 g/dL (32-36)
[2018-11-08 20:08] LABS: Fibrinogen 386 mg/dl (184-400); INR 1.1 (0.9-1.1); Partial Thromboplastin Ratio 0.9; Partial Thromboplastin Time 25.6 Seconds (21.0-31.0); Prothrombin Time 11.1 Seconds (9.0-12.0)
--- NOTE | 2018-11-08 20:33 | Ultrasound Report ---
US pelvic complete CLINICAL HISTORY: continued vaginal bleeding s/p D E BLEEDING COMPARISON STUDY: 11/08/2018 1:14 PM FINDINGS: The uterus measured 12.6 cm. The endometrial stripe measured 2 cm. Possible clot versus polyp within the central canal measuring u p to 3 x 2.5 cm. The right ovary measured not evaluated. The left ovary measured not evaluated. There is no ultrasonographic evidence of ovarian torsion. It should be noted that ovarian torsion can be present with normal Doppler ultrasonographic findings. There was no evidence of pathologic free pelvic fluid. IMPRESSION: 1. Persistent prominence of the central uterine endometrial lining.. 2. Nodular-like focus of increased echogenicity within the central canal measuring 3 x 2.5 cm. 3. This potentially relates to thrombus versus clot within the central canal, versus residual product s of conception. A polypoid lesion based exclusively on this study cannot be completely excluded The above report was generated using voice recognition software. It may contain grammatical, syntax or spelling errors. Electronically signed by: Jarred Mcrae M.D. 11/08/2018 8:32 PM
--- NOTE | 2018-11-08 20:34 | Gynecologic Progress Note ---
Date of Service November 08, 2018 Assessment & Plan (1) Hemorrhage due to retained products of conception: She is NOT saturating pads and chux. I feel that her bleeding is actually getting better and lessening. However, it is probably a little more than normal. therefore, will observe overnight, get serial labs. Do not feel a need to go back to the OR for EUA and possible placement of kumar balloon. appears to have a reaction ot hemobate so will not give that however , will give methergine 0.2mg q 6 hrs for 24 hrs. Long conversation with patient and her . Discussed the situation if she bleeds heavily, would go back to or, and she understands if her bleeding cannot be stopped, she may need a hyster. They expressed understanding. Will keep npo for now. Subjective Called again by nursing noting "saturated pad and chux " again. She was given a dose of hemobate in left buttock and has some bruising at the site about 5cm. Patient notes that she feels really cramping now since hemobate. Notes no cp/sob/palpitations. She was able to get up to the BR and void. There was a very small clot in the toilet and a bit of pink blood. Review of Systems Review of Systems: All systems reviewed & are unremarkable except as noted in HPI & below Physical Exam Constitutional: WD/WN, vitals as above Genitourinary: ON examination of the chux and pad, it is indeed NOT saturated. The pad has some blood on but not filled or saturated. there is a small amount of blood on the chux, again, NOT saturated. Bedside ultrasound. There is probable clot in the uterus about 2x3cm. there appears to be no active bleeding and no fluid collection in the uterus. After the ultrasound, a small clot was passed. Her cbc is stable , coags nl, fibrinogen also normal. Results & Data Vital Signs (Past 12 Hours) Vital Signs Temp Pulse Pulse Resp BP BP Pulse Ox 11/08/18 19:40 36.7 C 68 18 125/72 98 11/08/18 19:23 36.6 C 75 18 112/64 97 11/08/18 18:50 36.5 C 63 18 105/65 97 11/08/18 18:20 36.5 C 59 L 18 108/58 L 98 11/08/18 17:46 36.8 C 63 18 108/57 L 96 11/08/18 17:35 37.1 C 61 19 107/58 L 97 11/08/18 17:25 37.1 C 57 L 20 101/59 L 99 11/08/18 17:15 53 L 16 97/53 L 100 11/08/18 17:05 61 17 100/57 L 100 11/08/18 16:56 36.8 C 75 16 88/71 L 99 11/08/18 16:10 37 C 71 14 113/76 99 11/08/18 16:00 62 18 114/63 98 11/08/18 15:57 62 18 114/63 98 11/08/18 14:06 72 18 128/78 98 11/08/18 11:37 36.5 C 78 18 134/82 98
[2018-11-08] MEDS: LACTATED RINGER'S 1,000 ML IV SCH (21:02)
[2018-11-08] MEDS: METHYLERGONOVINE MALEATE 0.2 MG TAB PO SCH (22:34)
--- NOTE | 2018-11-08 23:19 | Operative Report ---
DATE OF OPERATION: 11/08/2018 DATE OF PROCEDURE: 11/08/2018 PREOPERATIVE DIAGNOSES: 1. Vaginal bleeding, status post vaginal delivery. 2. Probable retained products of conception. POSTOPERATIVE DIAGNOSES: 1. Vaginal bleeding, status post vaginal delivery. 2. Retained products of conception. PROCEDURE: Dilation and evacuation with curettage. SURGEON: Lillie Peres MD ANESTHESIA: General per endotracheal tube. ESTIMATED BLOOD LOSS: 150 mL. URINE OUTPUT: 25 mL of clear yellow urine drained from the bladder at the end of the procedure. FLUIDS: 650 mL of lactated Ringer's. HISTORY: The patient is a 1, para 1 who delivered on 10/25/2018. It was uncomplicated. Placenta appeared intact per the operative report. She started having extremely heavy bleeding last night, after hardly any bleeding at all. She failed several pads in the space at 5 minutes. She had an episode of this this morning. She was sent to the Emergency Department where her H&H were found to be actually improved from delivery and ultrasound were consistent with retained products of conception. FINDINGS: Uterus was about 14-week size, it is sounded to about 12 cm under ultrasound guidance. Products of conception were removed from the uterus including a large piece of likely placenta. The uterus was found to be fairly clean at the end of the procedure per ultrasound. COMPLICATIONS: None. DRAINS: None. DISPOSITION: To recovery room in stable condition. DESCRIPTION OF PROCEDURE: The patient was taken to the operating room where she was identified verbally and by bracelet. She was placed in dorsal supine position where general anesthesia was induced without difficulty. She was then placed in dorsal lithotomy position in [facility]-cane stirrups and prepped and draped in normal sterile fashion. A time-out was held, identifying correct patient, procedure and positioning. An exam under anesthesia was performed with the above noted findings. The bladder was drained of urine. A weighted speculum was placed into the vagina and the anterior lip of the cervix was grasped with a single tooth tenaculum. Unfortunately, during the course of the procedure, the tenaculum tore off causing a laceration. The cervix was dilated to a #23 Hegar dilator. An 8 mm suction curette was placed into the uterus and under ultrasound guidance, a very large piece of placenta was removed. Curettage was done with sharp curetting without return of further products of conception. The suction curette was replaced into the uterus once more. Under ultrasound guidance, it appeared that all products had been removed. The patient was given 0.2 of IM Methergine by anesthesia. The instruments were removed from the vagina. The uterus was massaged and found to be firm with minimal bleeding. The laceration on the anterior lip of the cervix was reapproximated with [id number] suture of 3-0 Vicryl. All sponge, lap and needle counts were correct x2. The patient tolerated the procedure well and was taken to recovery room in stable condition. I attest to the content of the Intraoperative Record and any orders documented therein. Any exception s are noted below.
[2018-11-09 00:54] LABS: Hematocrit (blood only) 29.9 % (37-47); Hemoglobin 9.7 g/dL (12.0-16.0); Mean Corpuscular Hgb Conc 32.4 g/dL (32-36); Mean Corpuscular Volume 75.7 fL (80-100); Mean Platelet Volume 9.8 fL (7.4-10.4); Platelet Count 425 K/uL (130-400); RDW Standard Deviation 42.3 fL (36.4-46.3); Red Blood Count 3.95 M/uL (4.2-5.4); White Blood Count 9.85 K/uL (4.8-10.8)
[2018-11-09 01:08] LABS: Fibrinogen 372 mg/dl (184-400)
[2018-11-09] MEDS: LACTATED RINGER'S 1,000 ML IV SCH (05:26)
--- NOTE | 2018-11-09 06:04 | Gynecologic Progress Note ---
Date of Service November 09, 2018 Assessment & Plan (1) Hemorrhage due to retained products of conception: PLan d/c home this am. Doing well. Precautions given. Subjective Patient did well over night. Much less bleeding. Voiding without difficulty. Tolerated regular diet. h/h and fibrinogen stable. Review of Systems Review of Systems: All systems reviewed & are unremarkable except as noted in HPI & below Physical Exam Constitutional: WD/WN, vitals as above Gastrointestinal (Abdomen): soft, nt, nd Genitourinary: appropriate amount of bleeding on pad. Results & Data Vital Signs (Past 12 Hours) Vital Signs Temp Pulse Resp BP Pulse Ox 11/09/18 03:36 36.9 C 55 L 16 89/51 L 96 11/08/18 23:25 36.6 C 69 16 103/66 96 11/08/18 22:40 36.6 C 69 18 113/72 97 11/08/18 21:15 36.7 C 57 L 18 99/65 L 98 11/08/18 21:07 37.7 C H 64 18 100/65 97 11/08/18 20:45 37.7 C H 64 18 100/65 97 11/08/18 19:40 36.7 C 68 18 125/72 98 11/08/18 19:23 36.6 C 75 18 112/64 97 11/08/18 18:50 36.5 C 63 18 105/65 97 11/08/18 18:20 36.5 C 59 L 18 108/58 L 98
[2018-11-09] MEDS: METHYLERGONOVINE MALEATE 0.2 MG TAB PO SCH (09:22)
--- NOTE | 2018-11-09 09:29 | Discharge Summary ---
ADMIT DIAGNOSES: 1. Vaginal bleeding . 2. Retained products of conception. DISCHARGE DIAGNOSES: 1. Vaginal bleeding . 2. Retained products of conception. 3. Heavy bleeding post-procedure. PROCEDURES: Dilation and evacuation, and curettage. HISTORY OF PRESENT ILLNESS: The patient is a 23-year-old white female 1, para 1, who had an uncomplicated vaginal delivery on 10/25. She had very little bleeding . The night before admission, she had sudden onset of very heavy bleeding where she felt 3 large pads in less than 5 minutes. This persisted for about 50 minutes and then stopped. She called the doctor on-call, who told her to take ibuprofen. She had another episode of this type of bleeding this a.m. and was instructed to come to the ER. She felt well on admission, has noted very little bleeding since this episode. She notes a small amount of cramping after both episodes, but none on evaluation. Notes no fevers, chills, nausea, vomiting. She is bottle feeding. H and H shows 9.6/30.5 which is improved from delivery and white blood cell count is 9.77. Ultrasound shows a uterus consistent with state and the endometrium thickened 1.8 cm with vascularity at the top, most consistent with retained products of conception. For the rest of the patient's history and physical, please see her history and physical. ASSESSMENT: This is a 2-week patient with vaginal bleeding and likely retained products of conception. HOSPITAL COURSE: The patient was admitted. She underwent a dilation and evacuation and curettage under ultrasound guidance with removal of products of conception including a fairly large piece of placenta. The patient received IM Methergine in the operating room and she was watched for over 5 minutes in the operating room after the procedure, her uterus massaged and she did not have significant bleeding. It was noted in the postoperative recovery room that she failed to 2 pads while she was there and then in the same day recovery, she felt 1 pad. The patient was evaluated and exam was performed, I could place my finger in her vagina and could feel a clot above that. Although same day unit, noted that her pads and chucks were saturated, they indeed were not really saturated, so we obtained some labs and we continued to watch. While the labs were processing, I got another call that she had soaked through another pad and a john. Her H and H were stable. Her platelets were normal. Her coags were normal and her fibrinogen was 380. On reevaluation, indeed her pad and john were not soaked, I did educate the nursing staff regarding what this meant, but given that she did have a little bit more bleeding in the postoperative recovery, then was typical, I decided to admit her for observation overnight and watch her bleeding. The patient did very well overnight. Her bleeding quickly decreased after this last pad in the postoperative recovery area. Her H and H at 12:30 and her fibrinogen were all stable. She tolerated a regular diet and was discharged in the a.m. She was given specific instructions about what to call about and she will follow up at her already scheduled 6-week visit.
[2018-11-16 14:58] LABS: APTT 25 sec (22-34); F8 Activity 182 % normal (50-180)
== END 2018-11-09 10:00 | disposition home or self-care (01) ==
LOC: ED 11:35 → 4N 16:10 → OR 16:10

== ENCOUNTER 2024-02-26 12:06 | Inpatient (IN) ==
[2024-02-26] MEDS ORDERED: LIDOCAINE 1% LOCAL 20 ML VIAL INFIL PRN (12:22)
[2024-02-26] MEDS ORDERED: OXYTOCIN 30 UNITS/NSS 30 UNITS/500 ML BAG IV PRN (12:22)
--- NOTE | 2024-02-26 12:30 | History & Physical Report ---
Date of Service February 26, 2024 Assessment & Plan (1) Encounter for supervision of normal in multigravida: (2) Need for rhogam due to Rh negative mother: Plan Pt is a 29 y/o female currently at 39W6 D GA with an NANCY 02/27/24 as determined by LMP who is here for induction. Her was complicated by Rh negative. Pt's US at 32 weeks showed accelerated growth, but last US showed normal to slightly lower growth. Cervical exam demonstrates closed cervix that is thick and high. Pt to benefit from Cytotec to soften cervix and start dilatation. Hbg and vitals are stable. Pt is denying symptoms of pre- eclampsia. Cytotec placed vaginally Will start Pitocin when dilated to 3 cm Monitor for cervical change Monitor vitals Consult anesthesiology after cervical change for epidural per pt request Admission and Anticipated Discharge Date Admission Date: February 26, 2024 History of Present Illness Primary Care Provider: Sander Saab Pt is a 29 y/o female currently at 39W6 D GA with an NANCY 02/1024 as determined by LMP who is here for induction. Her was complicated by Rh negative. irregular contractions; regular movement; no fluid loss; no bloody show External FHT and external uterine monitors used; Category 1 tracing; FHT va riability. Had regular appointments with OB. Labs: (07/17/23) Blood type: A negative Antibody screen: Negative H (today) Hct: 31.5% (today) WBC: 9.69 (today) Plt: 222 (today) Rubella: Immune VDRL/RPR: non-reactive Gonorrhea: Negative Chlamydia: Negative HIV: Negative HbSAg: Non-reactive GBS: negative Other screens: cff-DNA: _ (see scanned documents) CF: NA SMA: NA Allergies Allergy/AdvReac Type Severity Reaction Status Date / Time codeine AdvReac Intermediate "felt like Verified 02/26/24 12:20 [From Tylenol-Codeine] she was having a gallbladder attack" epinephrine AdvReac Intermediate Face Verified 02/26/24 12:20 became red & splotchy, felt dizzy nickel AdvReac Intermediate "INFECTED Verified 02/26/24 12:20 AREA THAT NICKEL USED ON" Home Medications Medication Instructions Recorded Confirmed Type vit no.95-ferrous 1 tab PO DAILY 10/25/23 02/26/24 History fumarate 28 mg-folic acid 800 mcg tablet () Patient History Medical History Hx of migraines "does lose vision when she has these" Varicella vaccination Anemia GERD (gastroesophageal reflux disease) Asthma hx-in high school; no current issues Surgical History Status post colposcopy S/P dilatation and curettage S/P appendectomy S/P laparoscopic cholecystectomy History of D&C 2 WEEKS (10/2018) 2/2 RETAINED PLACENTA Nausea and vomiting after administration of anesthetic agent "gets this every time she has anesthesia" History of tonsillectomy Family History Grandfather Family history of pancreatic cancer Cancer Mother Depression Brother Depression Diabetes Uncle Drinking problem Diabetes Grandfather (Maternal) Drinking problem Grandmother Diabetes Hypertension Grandmother (Maternal) Diabetes Denies family history of Ovarian cancer Prostate cancer Breast cancer Colorectal cancer Social History Smoking Status: Never smoker Second Hand Exposure: No; Do You Dip or Chew Tobacco: No; Hx Alcohol Use: No Hx Substance Use: No Preferred Language: Kyrgyz Communication Ability: Effective Visual Impairment: No Limitations Horticulture Worker Required: No Beliefs That Will Affect Care: None marital status: marital status details: Tc Verde (34) [phone] Current Living Situation: Spouse and Family Current Living Situation Comment: lives with spouse, child, dogs current occupational status: employed 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 Denies breast pain. Denies dysuria. Denies headache or changes in vision. Physical Exam Physical Exam: General: Alert, oriented. No acute distress. Cardiac: Regular rate and rhythm, no murmurs/rubs/gallops. Respiratory: Clear to auscultation bilaterally a/p, no wheezes/rales/rhonchi. No increased work of breathing. Symmetrical chest rise. No respiratory distress. Abdomen: Gravid; Active bowel sounds. nontender Pelvic: Dilation 0cm; Effacement thick; Station -[address] Valadez Lower Extremities: No lower extremity edema or swelling. No deep calf pain. Seth's negative bilaterally Results & Data Vital Signs (Past 12 Hours) Vital Signs Temp Pulse Resp BP 02/26/24 12:13 99 H 105/68 02/26/24 12:12 18 02/26/24 12:12 36.7 C 18 Laboratory Results 02/26/24 Range/Units 12:35 WBC 9.69 (4.8-10.8) K/ul RBC 4.06 L (4.20-5.40) M/uL Hgb 10.0 L (12.0-16.0) g/dl Hct 31.5 L (37.0-47.0) % MCV 77.6 L (80.0-100.0) fL MCH 24.6 L (25.0-34.0) pg MCHC 31.7 L (32.0-36.0) g/dL RDW Std Deviation 42.5 (36.4-46.3) fL RDW Coeff of Sherri 15.4 H (11.5-14.5) % Plt Count 222 (130-400) K/uL MPV 11.5 (9.4-12.4) fL Treponema pallidum Ab Pending Code Status & VTE Plan VTE Prophylaxis Plan VTE Prophylaxis will be ordered: No Resident Activity Tracking Resident Involvement: Resident Care Provided Care Provided: Adult Hospital Medicine
[2024-02-26 12:53] LABS: Hematocrit (blood only) 31.5 % (37.0-47.0); Mean Corpuscular Hemoglobin 24.6 pg (25.0-34.0); Mean Corpuscular Hgb Conc 31.7 g/dL (32.0-36.0); Mean Corpuscular Volume 77.6 fL (80.0-100.0); Mean Platelet Volume 11.5 fL (9.4-12.4); Platelet Count 222 K/uL (130-400); RDW Coefficient of Variation 15.4 % (11.5-14.5); RDW Standard Deviation 42.5 fL (36.4-46.3); Red Blood Count 4.06 M/uL (4.20-5.40); White Blood Count 9.69 K/ul (4.8-10.8)
[2024-02-26] MEDS: miSOPROStoL 25 MCG TAB PV ONE (13:21)
[2024-02-26] MEDS: LACTATED RINGER'S 1,000 ML IV PRN (18:08)
--- NOTE | 2024-02-26 18:32 | Labor Progress Brief Note ---
Date of Service February 26, 2024 Subjective Starting to feel crampy Assessment & Plan Admission and Anticipated Discharge Date Admission Date: February 26, 2024 Physical Exam Genitourinary: /-2 Nonlatex kumar introduced through cervix and inflated, but SROM occurred based on clear liquid passing through kumar, so this was deflated and removed. FHT Cat 1 [place] Q2m Results & Data Vital Signs (Past 12 Hours) Vital Signs Temp Pulse Resp BP Pulse Ox 02/26/24 18:28 76 98 02/26/24 18:23 72 97 02/26/24 16:32 62 100/55 L 02/26/24 15:14 65 119/62 02/26/24 15:13 18 02/26/24 15:13 97.9 F 18 02/26/24 12:13 99 H 105/68 02/26/24 12:12 18 02/26/24 12:12 98.1 F 18 Coding Level of Care Code None
[2024-02-26] MEDS ORDERED: NALBUPHINE HCL INJ 10 MG/ML AMP IV PRN (18:34)
[2024-02-26] MEDS ORDERED: BUPIVACAINE 0.25% PF 30 ML VIAL EPI PRN (18:34)
[2024-02-26] MEDS ORDERED: NALOXONE HCL 1 MG in SODIUM CHLORIDE 0.9% 1,000 ML IV PRN (18:34)
[2024-02-26] MEDS ORDERED: ROPIVACAINE 0.5% PF 5 MG/ML 20 ML VIAL EPI PRN (18:34)
[2024-02-26] MEDS ORDERED: NALOXONE HCL 0.4 MG/1 ML VIAL/CARP IV PRN (18:34)
[2024-02-26] MEDS ORDERED: LIDOCAINE 2% MPF LOCAL 5 ML VIAL EPI PRN (18:34)
[2024-02-26] MEDS ORDERED: SODIUM CHLORIDE 0.9% PF INJ 10 ML VIAL EPI PRN (18:34)
[2024-02-26] MEDS ORDERED: fentaNYL citrate PF 100 MCG/2 ML VIAL EPI PRN (18:34)
[2024-02-26] MEDS ORDERED: diphenhydrAMINE 50 MG/ML VIAL IV PRN (18:34)
--- NOTE | 2024-02-26 18:38 | Anesthesiology Consultation ---
Date of Service February 26, 2024 Assessment & Plan (1) Encounter for pre-operative examination: Chart Review Chart Review: Patient NOT seen in Pre Admission Testing and Acceptable Risk for Labor Epidural Consults Requested none History Height/Weight Height: 5 ft 4 in Weight: 91.626 kg Allergies Allergy/AdvReac Type Severity Reaction Status Date / Time codeine AdvReac Intermediate "felt like Verified 02/26/24 12:20 [From Tylenol-Codeine] she was having a gallbladder attack" epinephrine AdvReac Intermediate Face Verified 02/26/24 12:20 became red & splotchy, felt dizzy nickel AdvReac Intermediate "INFECTED Verified 02/26/24 12:20 AREA THAT NICKEL USED ON" Medications Home Medications Medication Instructions Recorded Confirmed Last Taken vit no.95-ferrous 1 tab PO DAILY 10/25/23 02/26/24 02/25/24 fumarate 28 mg-folic acid 800 mcg tablet () Active Medications Generic Name Dose Route Start Last Admin Trade Name Freq PRN Reason Stop Dose Admin Lactated Ringer's 1,000 mls @ 125 mls/hr 02/26/24 12:22 02/26/24 18:08 Lr IV 02/28/24 12:21 999 mls/hr .Q8H PRN Administration L&D Protocol Protocol Past Medical History Medical History Hx of migraines "does lose vision when she has these" Varicella vaccination Anemia GERD (gastroesophageal reflux disease) Asthma hx-in high school; no current issues Exercise / Class Metabolic Activity II 4-5 Yardwork/Stairs/Walk up hill Past Family History Family History Grandfather Family history of pancreatic cancer Cancer Mother Depression Brother Depression Diabetes Uncle Drinking problem Diabetes Grandfather (Maternal) Drinking problem Grandmother Diabetes Hypertension Grandmother (Maternal) Diabetes Denies family history of Ovarian cancer Prostate cancer Breast cancer Colorectal cancer Past Surgical History Surgical History Status post colposcopy S/P dilatation and curettage S/P appendectomy S/P laparoscopic cholecystectomy History of D&C 2 WEEKS (10/2018) 2/2 RETAINED PLACENTA Nausea and vomiting after administration of anesthetic agent "gets this every time she has anesthesia" History of tonsillectomy Social History Smoking Status: Never smoker Do You Dip or Chew Tobacco: No Hx Alcohol Use: No alcohol intake frequency: other Hx Substance Use: No substance use type: does not use Physical Exam Vital Signs Last Vital Signs Temp 36.9 C 02/26/24 18:00 Pulse 76 02/26/24 18:53 Resp 18 02/26/24 15:13 BP 100/55 L 02/26/24 16:32 Pulse Ox 98 02/26/24 18:53 Testing Laboratory Results 02/26/24 12:35 Blood Type A Negative 02/26/24 12:35 Blood Type Cancelled 02/26/24 12:35 Antibody Screen Cancelled 02/26/24 12:35 Antibody Screen POSITIVE A 02/26/24 12:35
[2024-02-26] MEDS: BUPIVACAINE 0.25% PF 30 ML VIAL ONE (19:00)
[2024-02-26] MEDS: fentaNYL citrate PF 100 MCG/2 ML VIAL ONE (19:00)
[2024-02-26] MEDS: LIDOCAINE 2%/EPINEPHRINE 1:200,000 20 ML PF ONE (19:00)
[2024-02-26] MEDS: fentANYL 2 MCG/ML BUPIVacaine 0.125%-NSS 100ML BAG ONE (19:02)
[2024-02-26] MEDS: LIDOCAINE 2%/EPINEPHRINE 1:200,000 20 ML PF EPI STA (19:33)
[2024-02-26] MEDS: SODIUM CHLORIDE 0.9% PF INJ 10 ML VIAL ONE (19:33)
[2024-02-26] MEDS: fentaNYL citrate PF 100 MCG/2 ML VIAL EPI STA (19:33)
[2024-02-26] MEDS: SODIUM CHLORIDE 0.9% PF INJ 10 ML VIAL EPI STA (19:33)
[2024-02-26] MEDS: BUPIVACAINE 0.25% PF 30 ML VIAL EPI STA (19:33)
[2024-02-26] MEDS: OXYTOCIN 30 UNITS/NSS 30 UNITS/500 ML BAG IV PRN (19:37)
[2024-02-26] MEDS: ePHEDrine sulfate 50 MG/ML AMP IV PRN (20:34)
[2024-02-27] MEDS: fentANYL 2 MCG/ML BUPIVacaine 0.125%-NSS 100ML BAG EPI PRN (03:50)
[2024-02-27] MEDS: ONDANSETRON INJ 2 MG/ML 2 ML VIAL IV PRN (05:44)
--- NOTE | 2024-02-27 06:32 | Labor Progress Brief Note ---
Date of Service February 27, 2024 Subjective Comfortable with epidural Assessment & Plan (1) Encounter for induction of labor: Plan: Patient with cervix now through ripening, but due to methods used has already reached 20mu/pit. Given just beginning active labor and long course may be ahead, offered 20min pit washout period and a light meal, then resume pit at 10. Patient accepts. Admission and Anticipated Discharge Date Admission Date: February 26, 2024 Physical Exam Genitourinary: Clear fluid continues to leak Cvx unchanged (RN exam at 0400 was 4cm, no change from that) FHT Cat 1 [place] Q2-3 Pit @ 20 Results & Data Vital Signs (Past 12 Hours) Vital Signs Temp Pulse Resp BP Pulse Ox 02/27/24 06:28 88 97 02/27/24 06:23 78 97 02/27/24 06:21 111 H 102/58 L 02/27/24 06:18 77 98 02/27/24 06:13 75 97 02/27/24 06:08 100 H 99 02/27/24 06:06 82 99/62 L 02/27/24 06:03 73 97 02/27/24 06:00 16 02/27/24 06:00 16 02/27/24 05:58 87 97 02/27/24 05:53 80 98 02/27/24 05:51 75 89/51 L 02/27/24 05:48 86 97 02/27/24 05:43 105 H 99 02/27/24 05:38 88 98 02/27/24 05:37 80 95/52 L 02/27/24 05:33 72 95 02/27/24 05:30 16 02/27/24 05:30 16 02/27/24 05:28 74 95 02/27/24 05:23 90 97 02/27/24 05:22 78 95/54 L 02/27/24 05:18 82 95 02/27/24 05:17 77 94 02/27/24 05:13 76 95 02/27/24 05:08 77 95 02/27/24 05:06 81 97/50 L 02/27/24 05:03 80 96 02/27/24 05:00 16 02/27/24 05:00 98.2 F 16 02/27/24 04:58 71 96 02/27/24 04:53 73 96 02/27/24 04:51 77 99/52 L 02/27/24 04:49 104 H 93 02/27/24 04:48 89 95 02/27/24 04:43 95 02/27/24 04:43 76 02/27/24 04:43 75 94 02/27/24 04:38 74 96 02/27/24 04:36 75 91/51 L 02/27/24 04:33 73 97 02/27/24 04:30 16 02/27/24 04:30 16 02/27/24 04:28 78 96 02/27/24 04:23 80 98 02/27/24 04:21 73 90/52 L 02/27/24 04:18 77 97 02/27/24 04:13 74 94 02/27/24 04:08 106 H 97 02/27/24 04:03 80 98 02/27/24 04:00 16 02/27/24 04:00 16 02/27/24 03:58 80 98 02/27/24 03:53 97 H 98 02/27/24 03:51 105 H 112/72 02/27/24 03:48 93 H 99 02/27/24 03:43 94 H 98 02/27/24 03:38 91 H 98 02/27/24 03:36 86 114/65 02/27/24 03:33 81 98 02/27/24 03:31 82 92 02/27/24 03:28 90 99 02/27/24 03:23 80 119/67 99 02/27/24 03:18 82 99 02/27/24 03:13 83 97 02/27/24 03:08 84 100 02/27/24 03:07 80 112/61 02/27/24 03:03 96 H 98 02/27/24 03:00 16 02/27/24 03:00 99.1 F 16 02/27/24 02:58 100 H 99 02/27/24 02:53 97 H 96 02/27/24 02:51 98 H 100/54 L 02/27/24 02:48 75 95 02/27/24 02:43 83 95 02/27/24 02:38 80 96 02/27/24 02:36 74 107/57 L 02/27/24 02:33 97 02/27/24 02:33 92 H 02/27/24 02:33 77 94 02/27/24 02:30 16 02/27/24 02:30 16 02/27/24 02:28 75 95 02/27/24 02:23 80 96 02/27/24 02:21 93 H 107/60 02/27/24 02:18 87 97 02/27/24 02:13 93 H 97 02/27/24 02:08 79 97 02/27/24 02:06 98 H 111/64 02/27/24 02:03 83 96 02/27/24 02:00 16 02/27/24 02:00 16 02/27/24 01:58 82 96 02/27/24 01:53 79 97 02/27/24 01:51 91 H 109/62 02/27/24 01:48 97 H 97 02/27/24 01:43 87 96 02/27/24 01:38 75 96 02/27/24 01:36 88 113/64 02/27/24 01:33 80 99 02/27/24 01:30 16 02/27/24 01:30 16 02/27/24 01:28 83 97 02/27/24 01:23 89 99 02/27/24 01:21 85 112/58 L 02/27/24 01:18 88 99 02/27/24 01:13 91 H 100 02/27/24 01:08 87 98 02/27/24 01:06 101 H 115/56 L 02/27/24 01:03 92 H 100 02/27/24 01:00 98.6 F 02/27/24 00:58 79 95 02/27/24 00:53 84 97 02/27/24 00:52 75 104/57 L 02/27/24 00:48 77 96 02/27/24 00:43 86 98 02/27/24 00:38 81 95 02/27/24 00:36 72 105/56 L 02/27/24 00:33 80 96 02/27/24 00:30 16 02/27/24 00:30 16 02/27/24 00:28 73 97 02/27/24 00:23 79 98 02/27/24 00:21 76 109/57 L 02/27/24 00:18 91 H 97 02/27/24 00:13 78 97 02/27/24 00:08 80 96 09/10/24 00:03 73 97 02/27/24 00:00 16 02/27/24 00:00 16 02/26/24 23:58 78 97 02/26/24 23:53 78 98 02/26/24 23:51 80 97/52 L 02/26/24 23:48 82 97 02/26/24 23:43 80 98 02/26/24 23:38 89 99 02/26/24 23:36 74 93/53 L 02/26/24 23:33 77 98 02/26/24 23:30 16 02/26/24 23:30 16 02/26/24 23:28 80 98 02/26/24 23:23 88 98 02/26/24 23:21 71 95/48 L 02/26/24 23:18 84 97 02/26/24 23:13 66 96 02/26/24 23:08 82 97 02/26/24 23:07 74 88/51 L 02/26/24 23:03 78 96 02/26/24 23:00 16 02/26/24 23:00 97.9 F 16 02/26/24 22:58 67 96 02/26/24 22:53 72 96 02/26/24 22:48 70 95 02/26/24 22:46 70 94 02/26/24 22:43 74 97 02/26/24 22:38 67 96 02/26/24 22:36 69 94/53 L 02/26/24 22:33 75 98 02/26/24 22:30 16 02/26/24 22:30 16 02/26/24 22:28 80 98 02/26/24 22:23 77 97 02/26/24 22:21 67 96/51 L 02/26/24 22:18 72 97 02/26/24 22:13 73 97 02/26/24 22:08 69 97 02/26/24 22:06 75 96/55 L 02/26/24 22:03 71 97 02/26/24 22:00 16 02/26/24 22:00 16 02/26/24 21:58 77 100 02/26/24 21:53 76 98 02/26/24 21:51 66 96/54 L 02/26/24 21:48 72 99 02/26/24 21:43 71 96 02/26/24 21:38 74 97 02/26/24 21:37 67 95/52 L 02/26/24 21:33 73 99 02/26/24 21:30 16 02/26/24 21:30 16 02/26/24 21:28 69 98 02/26/24 21:23 65 98 02/26/24 21:21 65 99/51 L 02/26/24 21:18 74 99 02/26/24 21:13 71 99 02/26/24 21:08 72 99 02/26/24 21:07 67 104/51 L 02/26/24 21:03 71 99 02/26/24 21:00 16 02/26/24 21:00 98.2 F 16 02/26/24 20:58 84 99 02/26/24 20:54 79 108/53 L 02/26/24 20:53 79 100 02/26/24 20:48 85 100 02/26/24 20:43 85 100 02/26/24 20:40 96 H 112/62 02/26/24 20:38 70 105/55 L 99 02/26/24 20:36 65 115/61 02/26/24 20:33 100 02/26/24 20:33 74 02/26/24 20:33 72 84/46 L 02/26/24 20:28 99 02/26/24 20:28 81 02/26/24 20:28 76 102/55 L 02/26/24 20:23 92 H 100 02/26/24 20:18 62 99 02/26/24 20:13 63 98 02/26/24 20:08 66 99 02/26/24 20:06 63 92/53 L 02/26/24 20:03 66 97 02/26/24 20:00 16 02/26/24 20:00 16 02/26/24 19:58 62 98 02/26/24 19:53 66 98 02/26/24 19:51 62 90/54 L 02/26/24 19:48 67 98 02/26/24 19:43 68 98 02/26/24 19:38 72 99 02/26/24 19:37 64 105/54 L 02/26/24 19:33 63 97 02/26/24 19:30 16 02/26/24 19:30 16 02/26/24 19:28 69 98 02/26/24 19:23 78 98 02/26/24 19:21 68 103/52 L 02/26/24 19:18 73 97 02/26/24 19:15 16 02/26/24 19:15 16 02/26/24 19:14 64 99/51 L 02/26/24 19:13 70 98 02/26/24 19:12 67 93/54 L 02/26/24 19:10 70 96/55 L 02/26/24 19:08 98 02/26/24 19:08 76 02/26/24 19:08 79 92/54 L 02/26/24 19:06 69 94/53 L 02/26/24 19:05 16 02/26/24 19:05 16 02/26/24 19:04 72 105/55 L 02/26/24 19:03 79 97 02/26/24 19:02 73 104/50 L 02/26/24 19:00 98.2 F 76 110/54 L 02/26/24 18:58 72 98 02/26/24 18:53 76 98 02/26/24 18:48 96 H 100 02/26/24 18:43 79 100 02/26/24 18:38 81 99 02/26/24 18:33 67 97 Coding Level of Care Code None Diagnoses Encounter for induction of labor Z34.90
--- NOTE | 2024-02-27 11:51 | Labor Progress Brief Note ---
Date of Service February 27, 2024 Subjective no issues with pain Assessment & Plan (1) Encounter for induction of labor: Plan will use iupc to guide pitocin use. fhts categ 1. thus far likely mvu's inadequate. Admission and Anticipated Discharge Date Admission Date: February 26, 2024 Physical Exam Constitutional: WD/WN, vitals as above Genitourinary: Manual OB Exam: + cervical dilation 4 cm, + cervical effacement 80% and + station -1 OB Exam Monitor Tracing: + external FHT monitor used, + external uterine monitor used (q2-4, pit at 26. iupc placed and fse. ), + category I and + normal FHT variability Results & Data Vital Signs (Past 12 Hours) Vital Signs Temp Pulse Resp BP Pulse Ox 02/27/24 11:43 80 99 02/27/24 11:38 98 02/27/24 11:38 83 02/27/24 11:38 82 115/61 02/27/24 11:33 76 98 02/27/24 11:28 79 98 02/27/24 11:23 79 98 02/27/24 11:21 71 109/56 L 02/27/24 11:18 89 97 02/27/24 11:13 68 97 02/27/24 11:08 78 98 02/27/24 11:07 92 H 108/72 02/27/24 11:03 79 98 02/27/24 10:58 81 98 02/27/24 10:53 71 97 02/27/24 10:52 77 106/60 02/27/24 10:48 78 98 02/27/24 10:45 20 02/27/24 10:45 20 02/27/24 10:43 80 98 02/27/24 10:38 76 96 02/27/24 10:37 70 107/60 02/27/24 10:33 77 97 02/27/24 10:28 80 96 02/27/24 10:23 104 H 100 02/27/24 10:22 82 103/58 L 02/27/24 10:18 87 98 02/27/24 10:13 79 97 02/27/24 10:08 73 96 02/27/24 10:06 77 108/61 02/27/24 10:03 83 96 02/27/24 09:58 82 97 02/27/24 09:53 84 98 02/27/24 09:52 85 122/50 L 02/27/24 09:48 93 H 99 02/27/24 09:45 20 02/27/24 09:45 98.4 F 20 02/27/24 09:43 82 97 02/27/24 09:38 86 96 02/27/24 09:36 76 108/57 L 02/27/24 09:33 84 96 02/27/24 09:28 78 97 02/27/24 09:23 80 99 02/27/24 09:21 76 103/54 L 02/27/24 09:18 87 97 02/27/24 09:15 20 02/27/24 09:15 20 02/27/24 09:13 86 98 02/27/24 09:08 81 95 02/27/24 09:06 73 98/53 L 02/27/24 09:03 79 94 02/27/24 08:58 77 95 02/27/24 08:53 73 94 02/27/24 08:51 80 105/59 L 02/27/24 08:48 75 95 02/27/24 08:45 20 02/27/24 08:45 20 02/27/24 08:43 78 94 02/27/24 08:38 80 96 02/27/24 08:36 77 104/59 L 02/27/24 08:33 71 97 02/27/24 08:28 84 96 02/27/24 08:23 83 98 02/27/24 08:22 78 104/65 02/27/24 08:18 85 97 02/27/24 08:13 90 98 02/27/24 08:08 80 99 02/27/24 08:06 80 130/97 02/27/24 08:03 72 96 02/27/24 07:58 70 96 02/27/24 07:53 70 96 02/27/24 07:52 68 99/51 L 02/27/24 07:48 77 96 02/27/24 07:45 20 02/27/24 07:45 20 02/27/24 07:43 72 96 02/27/24 07:38 69 97 02/27/24 07:36 68 104/55 L 02/27/24 07:33 104 H 97 02/27/24 07:31 71 94 02/27/24 07:28 85 97 02/27/24 07:23 112 H 100 02/27/24 07:21 76 104/60 02/27/24 07:18 105 H 99 02/27/24 07:15 20 02/27/24 07:15 98.1 F 20 02/27/24 07:13 91 H 96 02/27/24 07:08 96 H 97 02/27/24 07:07 80 98/55 L 02/27/24 07:04 94 H 93 02/27/24 07:03 88 96 02/27/24 07:00 16 02/27/24 07:00 02/27/24 06:58 74 94 02/27/24 06:53 83 97 02/27/24 06:52 95 H 96/51 L 02/27/24 06:48 93 H 96 02/27/24 06:43 103 H 97 02/27/24 06:38 99 H 98 02/27/24 06:37 77 98/55 L 02/27/24 06:36 76 94 02/27/24 06:33 116 H 96 02/27/24 06:30 02/27/24 06:30 16 02/27/24 06:28 88 97 02/27/24 06:23 78 97 02/27/24 06:21 111 H 102/58 L 02/27/24 06:18 77 98 02/27/24 06:13 75 97 02/27/24 06:08 100 H 99 02/27/24 06:06 82 99/62 L 02/27/24 06:03 73 97 02/27/24 06:00 02/27/24 06:00 02/27/24 05:58 87 97 02/27/24 05:53 80 98 02/27/24 05:51 75 89/51 L 02/27/24 05:48 86 97 02/27/24 05:43 105 H 99 02/27/24 05:38 88 98 02/27/24 05:37 80 95/52 L 02/27/24 05:33 72 95 02/27/24 05:30 16 02/27/24 05:30 16 02/27/24 05:28 74 95 02/27/24 05:23 90 97 02/27/24 05:22 78 95/54 L 02/27/24 05:18 82 95 02/27/24 05:17 77 94 02/27/24 05:13 76 95 02/27/24 05:08 77 95 02/27/24 05:06 81 97/50 L 02/27/24 05:03 80 96 02/27/24 05:00 16 02/27/24 05:00 98.2 F 16 02/27/24 04:58 71 96 02/27/24 04:53 73 96 02/27/24 04:51 77 99/52 L 02/27/24 04:49 104 H 93 02/27/24 04:48 89 95 02/27/24 04:43 95 02/27/24 04:43 76 02/27/24 04:43 75 94 02/27/24 04:38 74 96 02/27/24 04:36 75 91/51 L 02/27/24 04:33 73 97 02/27/24 04:30 16 02/27/24 04:30 16 02/27/24 04:28 78 96 02/27/24 04:23 80 98 02/27/24 04:21 73 90/52 L 02/27/24 04:18 77 97 02/27/24 04:13 74 94 02/27/24 04:08 106 H 97 02/27/24 04:03 80 98 02/27/24 04:00 16 02/27/24 04:00 16 02/27/24 03:58 80 98 02/27/24 03:53 97 H 98 02/27/24 03:51 105 H 112/72 02/27/24 03:48 93 H 99 02/27/24 03:43 94 H 98 02/27/24 03:38 91 H 98 02/27/24 03:36 86 114/65 02/27/24 03:33 81 98 02/27/24 03:31 82 92 02/27/24 03:28 90 99 02/27/24 03:23 80 119/67 99 02/27/24 03:18 82 99 02/27/24 03:13 83 97 02/27/24 03:08 84 100 02/27/24 03:07 80 112/61 02/27/24 03:03 96 H 98 02/27/24 03:00 16 02/27/24 03:00 99.1 F 16 02/27/24 02:58 100 H 99 02/27/24 02:53 97 H 96 02/27/24 02:51 98 H 100/54 L 02/27/24 02:48 75 95 02/27/24 02:43 83 95 02/27/24 02:38 80 96 02/27/24 02:36 74 107/57 L 02/27/24 02:33 97 02/27/24 02:33 92 H 02/27/24 02:33 77 94 02/27/24 02:30 16 02/27/24 02:30 16 02/27/24 02:28 75 95 02/27/24 02:23 80 96 02/27/24 02:21 93 H 107/60 02/27/24 02:18 87 97 02/27/24 02:13 93 H 97 02/27/24 02:08 79 97 02/27/24 02:06 98 H 111/64 02/27/24 02:03 83 96 02/27/24 02:00 16 02/27/24 02:00 16 02/27/24 01:58 82 96 02/27/24 01:53 79 97 02/27/24 01:51 91 H 109/62 02/27/24 01:48 97 H 97 02/27/24 01:43 87 96 02/27/24 01:38 75 96 02/27/24 01:36 88 113/64 02/27/24 01:33 80 99 02/27/24 01:30 16 02/27/24 01:30 16 02/27/24 01:28 83 97 02/27/24 01:23 89 99 02/27/24 01:21 85 112/58 L 02/27/24 01:18 88 99 02/27/24 01:13 91 H 100 02/27/24 01:08 87 98 02/27/24 01:06 101 H 115/56 L 02/27/24 01:03 92 H 100 02/27/24 01:00 98.6 F 02/27/24 00:58 79 95 02/27/24 00:53 84 97 02/27/24 00:52 75 104/57 L 02/27/24 00:48 77 96 02/27/24 00:43 86 98 02/27/24 00:38 81 95 02/27/24 00:36 72 105/56 L 02/27/24 00:33 80 96 02/27/24 00:30 16 02/27/24 00:30 16 02/27/24 00:28 73 97 02/27/24 00:23 79 98 02/27/24 00:21 76 109/57 L 02/27/24 00:18 91 H 97 02/27/24 00:13 78 97 02/27/24 00:08 80 96 02/27/24 00:03 73 97 02/27/24 00:00 16 02/27/24 00:00 16 02/26/24 23:58 78 97 02/26/24 23:53 78 98 02/26/24 23:51 80 97/52 L Coding Level of Care Code None Diagnoses Encounter for induction of labor Z34.90
[2024-02-27] MEDS: ACETAMINOPHEN 325 MG TAB ONE (13:37)
--- NOTE | 2024-02-27 14:37 | Labor Progress Brief Note ---
Date of Service February 27, 2024 Subjective comfortable with epidural Assessment & Plan (1) Encounter for induction of labor: Plan good cx change. c/w pit, can allow additional pit to keep mvu's adequate. fhts categ 1. Admission and Anticipated Discharge Date Admission Date: February 26, 2024 Physical Exam Constitutional: WD/WN, vitals as above Genitourinary: Manual OB Exam: + cervical dilation 8 cm (with ctx), + cervical effacement 100% and + station 0 OB Exam Monitor Tracing: + scalp electrode used, + intra-uterine pressure catheter used (mvu's had been >200 but ctx somewhat spaced out), + category I and + normal FHT variability Results & Data Vital Signs (Past 12 Hours) Vital Signs Temp Pulse Resp BP Pulse Ox 02/27/24 14:33 81 99 02/27/24 14:28 82 97 02/27/24 14:23 79 98 02/27/24 14:21 75 101/59 L 02/27/24 14:18 73 96 02/27/24 14:13 70 96 02/27/24 14:08 80 96 02/27/24 14:07 71 109/53 L 02/27/24 14:03 70 97 02/27/24 13:58 71 98 02/27/24 13:53 94 H 97 02/27/24 13:52 83 119/56 L 02/27/24 13:48 73 98 02/27/24 13:43 82 100 02/27/24 13:38 88 97 02/27/24 13:37 72 106/54 L 02/27/24 13:33 70 100 02/27/24 13:28 68 98 02/27/24 13:23 73 99 02/27/24 13:21 84 87/53 L 02/27/24 13:18 75 98 02/27/24 13:13 72 99 02/27/24 13:08 77 99 02/27/24 13:07 71 92/50 L 02/27/24 13:03 73 96 02/27/24 12:58 76 98 02/27/24 12:53 70 97 02/27/24 12:51 73 84/46 L 02/27/24 12:48 70 95 02/27/24 12:43 72 96 02/27/24 12:38 69 96 02/27/24 12:37 71 94/50 L 02/27/24 12:33 72 95 02/27/24 12:28 71 95 02/27/24 12:23 70 96 02/27/24 12:21 67 88/53 L 02/27/24 12:18 71 96 02/27/24 12:13 74 95 02/27/24 12:08 68 95 02/27/24 12:06 63 89/52 L 02/27/24 12:03 70 95 02/27/24 11:58 76 96 02/27/24 11:53 74 96 02/27/24 11:51 71 97/52 L 02/27/24 11:48 83 99 02/27/24 11:43 80 99 02/27/24 11:38 98 02/27/24 11:38 83 02/27/24 11:38 82 115/61 02/27/24 11:33 76 98 02/27/24 11:28 79 98 02/27/24 11:23 79 98 02/27/24 11:21 71 109/56 L 02/27/24 11:18 89 97 02/27/24 11:15 20 02/27/24 11:15 98.2 F 20 02/27/24 11:13 68 97 02/27/24 11:08 78 98 02/27/24 11:07 92 H 108/72 02/27/24 11:03 79 98 02/27/24 10:58 81 98 02/27/24 10:53 71 97 02/27/24 10:52 77 106/60 02/27/24 10:48 78 98 02/27/24 10:45 20 02/27/24 10:45 20 02/27/24 10:43 80 98 02/27/24 10:38 76 96 02/27/24 10:37 70 107/60 02/27/24 10:33 77 97 02/27/24 10:28 80 96 02/27/24 10:23 104 H 100 02/27/24 10:22 82 103/58 L 02/27/24 10:18 87 98 02/27/24 10:13 79 97 02/27/24 10:08 73 96 02/27/24 10:06 77 108/61 02/27/24 10:03 83 96 02/27/24 09:58 82 97 09/10/24 09:53 84 98 02/27/24 09:52 85 122/50 L 02/27/24 09:48 93 H 99 02/27/24 09:45 20 02/27/24 09:45 98.4 F 20 02/27/24 09:43 82 97 02/27/24 09:38 86 96 02/27/24 09:36 76 108/57 L 02/27/24 09:33 84 96 02/27/24 09:28 78 97 02/27/24 09:23 80 99 02/27/24 09:21 76 103/54 L 02/27/24 09:18 87 97 02/27/24 09:15 20 02/27/24 09:15 20 02/27/24 09:13 86 98 02/27/24 09:08 81 95 02/27/24 09:06 73 98/53 L 02/27/24 09:03 79 94 02/27/24 08:58 77 95 02/27/24 08:53 73 94 02/27/24 08:51 80 105/59 L 02/27/24 08:48 75 95 02/27/24 08:45 20 02/27/24 08:45 20 02/27/24 08:43 78 94 02/27/24 08:38 80 96 02/27/24 08:36 77 104/59 L 02/27/24 08:33 71 97 02/27/24 08:28 84 96 02/27/24 08:23 83 98 02/27/24 08:22 78 104/65 02/27/24 08:18 85 97 02/27/24 08:13 90 98 02/27/24 08:08 80 99 02/27/24 08:06 80 130/97 02/27/24 08:03 72 96 02/27/24 07:58 70 96 02/27/24 07:53 70 96 02/27/24 07:52 68 99/51 L 02/27/24 07:48 77 96 02/27/24 07:45 20 02/27/24 07:45 20 02/27/24 07:43 72 96 02/27/24 07:38 69 97 02/27/24 07:36 68 104/55 L 02/27/24 07:33 104 H 97 02/27/24 07:31 71 94 02/27/24 07:28 85 97 02/27/24 07:23 112 H 100 02/27/24 07:21 76 104/60 02/27/24 07:18 105 H 99 02/27/24 07:15 20 02/27/24 07:15 98.1 F 20 02/27/24 07:13 91 H 96 02/27/24 07:08 96 H 97 02/27/24 07:07 80 98/55 L 02/27/24 07:04 94 H 93 02/27/24 07:03 88 96 02/27/24 07:00 16 02/27/24 07:00 02/27/24 06:58 74 94 02/27/24 06:53 83 97 02/27/24 06:52 95 H 96/51 L 02/27/24 06:48 93 H 96 02/27/24 06:43 103 H 97 02/27/24 06:38 99 H 98 02/27/24 06:37 77 98/55 L 02/27/24 06:36 76 94 02/27/24 06:33 116 H 96 02/27/24 06:30 16 02/27/24 06:30 16 02/27/24 06:28 88 97 02/27/24 06:23 78 97 02/27/24 06:21 111 H 102/58 L 02/27/24 06:18 77 98 02/27/24 06:13 75 97 02/27/24 06:08 100 H 99 02/27/24 06:06 82 99/62 L 02/27/24 06:03 73 97 02/27/24 06:00 02/27/24 06:00 02/27/24 05:58 87 97 02/27/24 05:53 80 98 02/27/24 05:51 75 89/51 L 02/27/24 05:48 86 97 02/27/24 05:43 105 H 99 02/27/24 05:38 88 98 02/27/24 05:37 80 95/52 L 02/27/24 05:33 72 95 02/27/24 05:30 16 02/27/24 05:30 16 02/27/24 05:28 74 95 02/27/24 05:23 90 97 02/27/24 05:22 78 95/54 L 02/27/24 05:18 82 95 02/27/24 05:17 77 94 02/27/24 05:13 76 95 02/27/24 05:08 77 95 02/27/24 05:06 81 97/50 L 02/27/24 05:03 80 96 02/27/24 05:00 16 02/27/24 05:00 98.2 F 16 02/27/24 04:58 71 96 02/27/24 04:53 73 96 02/27/24 04:51 77 99/52 L 02/27/24 04:49 104 H 93 02/27/24 04:48 89 95 02/27/24 04:43 95 02/27/24 04:43 76 02/27/24 04:43 75 94 02/27/24 04:38 74 96 02/27/24 04:36 75 91/51 L 02/27/24 04:33 73 97 02/27/24 04:30 16 02/27/24 04:30 16 02/27/24 04:28 78 96 02/27/24 04:23 80 98 02/27/24 04:21 73 90/52 L 02/27/24 04:18 77 97 02/27/24 04:13 74 94 02/27/24 04:08 106 H 97 02/27/24 04:03 80 98 02/27/24 04:00 16 02/27/24 04:00 16 02/27/24 03:58 80 98 02/27/24 03:53 97 H 98 02/27/24 03:51 105 H 112/72 02/27/24 03:48 93 H 99 02/27/24 03:43 94 H 98 02/27/24 03:38 91 H 98 02/27/24 03:36 86 114/65 02/27/24 03:33 81 98 02/27/24 03:31 82 92 02/27/24 03:28 90 99 02/27/24 03:23 80 119/67 99 02/27/24 03:18 82 99 02/27/24 03:13 83 97 02/27/24 03:08 84 100 02/27/24 03:07 80 112/61 02/27/24 03:03 96 H 98 02/27/24 03:00 16 02/27/24 03:00 99.1 F 16 02/27/24 02:58 100 H 99 02/27/24 02:53 97 H 96 02/27/24 02:51 98 H 100/54 L 02/27/24 02:48 75 95 02/27/24 02:43 83 95 02/27/24 02:38 80 96 02/27/24 02:36 74 107/57 L Coding Level of Care Code None Diagnoses Encounter for induction of labor Z34.90
--- NOTE | 2024-02-27 16:42 | Labor Progress Brief Note ---
Date of Service February 27, 2024 Subjective feeling pressure Assessment & Plan (1) Encounter for induction of labor: Plan good cx change. c/w pit. anticip 2nd stage soon. Admission and Anticipated Discharge Date Admission Date: February 26, 2024 Physical Exam Constitutional: WD/WN, vitals as above Genitourinary: Manual OB Exam: + cervical dilation 9 cm, + cervical effacement 100% and + station + 1 OB Exam Monitor Tracing: + scalp electrode used (+scalp stim response), + intra-uterine pressure catheter used, + category I and + normal FHT variability Results & Data Vital Signs (Past 12 Hours) Vital Signs Temp Pulse Resp BP Pulse Ox 02/27/24 16:38 89 98 02/27/24 16:37 101 H 113/75 02/27/24 16:33 89 98 02/27/24 16:28 75 95 02/27/24 16:23 79 96 02/27/24 16:21 78 111/58 L 02/27/24 16:18 73 96 02/27/24 16:13 68 95 02/27/24 16:08 70 96 02/27/24 16:06 80 118/59 L 02/27/24 16:03 80 96 02/27/24 15:58 70 97 02/27/24 15:53 70 97 02/27/24 15:52 78 107/57 L 02/27/24 15:48 75 97 02/27/24 15:43 77 98 02/27/24 15:38 83 98 02/27/24 15:37 75 98/51 L 02/27/24 15:33 72 98 02/27/24 15:28 72 99 02/27/24 15:23 82 99 02/27/24 15:22 73 100/59 L 02/27/24 15:18 72 99 02/27/24 15:15 20 02/27/24 15:15 98.4 F 20 02/27/24 15:13 77 98 02/27/24 15:08 72 97 02/27/24 15:06 70 97/54 L 02/27/24 15:03 78 98 02/27/24 14:58 80 98 02/27/24 14:53 78 98 02/27/24 14:52 71 94/52 L 02/27/24 14:48 72 98 02/27/24 14:43 99 09/10/24 14:43 71 02/27/24 14:43 71 110/52 L 02/27/24 14:38 82 99 02/27/24 14:33 81 99 02/27/24 14:28 82 97 02/27/24 14:23 79 98 02/27/24 14:21 75 101/59 L 02/27/24 14:18 73 96 02/27/24 14:15 20 02/27/24 14:15 20 02/27/24 14:13 70 96 02/27/24 14:08 80 96 02/27/24 14:07 71 109/53 L 02/27/24 14:03 70 97 02/27/24 13:58 71 98 02/27/24 13:53 94 H 97 02/27/24 13:52 83 119/56 L 02/27/24 13:48 73 98 02/27/24 13:45 20 02/27/24 13:45 20 02/27/24 13:43 82 100 02/27/24 13:38 88 97 02/27/24 13:37 72 106/54 L 02/27/24 13:35 98.1 F 02/27/24 13:33 70 100 02/27/24 13:28 68 98 02/27/24 13:23 73 99 02/27/24 13:21 84 87/53 L 02/27/24 13:18 75 98 02/27/24 13:15 20 02/27/24 13:15 20 02/27/24 13:13 72 99 02/27/24 13:08 77 99 02/27/24 13:07 71 92/50 L 02/27/24 13:03 73 96 02/27/24 12:58 76 98 02/27/24 12:53 70 97 02/27/24 12:51 73 84/46 L 02/27/24 12:48 70 95 02/27/24 12:43 72 96 02/27/24 12:38 69 96 02/27/24 12:37 71 94/50 L 02/27/24 12:33 72 95 02/27/24 12:28 71 95 02/27/24 12:23 70 96 02/27/24 12:21 67 88/53 L 02/27/24 12:18 71 96 02/27/24 12:13 74 95 02/27/24 12:08 68 95 02/27/24 12:06 63 89/52 L 02/27/24 12:03 70 95 02/27/24 11:58 76 96 02/27/24 11:53 74 96 02/27/24 11:51 71 97/52 L 02/27/24 11:48 83 99 02/27/24 11:43 80 99 02/27/24 11:38 98 02/27/24 11:38 83 02/27/24 11:38 82 115/61 02/27/24 11:33 76 98 02/27/24 11:28 79 98 02/27/24 11:23 79 98 02/27/24 11:21 71 109/56 L 02/27/24 11:18 89 97 02/27/24 11:15 20 02/27/24 11:15 98.2 F 20 02/27/24 11:13 68 97 02/27/24 11:08 78 98 02/27/24 11:07 92 H 108/72 02/27/24 11:03 79 98 02/27/24 10:58 81 98 02/27/24 10:53 71 97 02/27/24 10:52 77 106/60 02/27/24 10:48 78 98 02/27/24 10:45 20 02/27/24 10:45 20 02/27/24 10:43 80 98 02/27/24 10:38 76 96 02/27/24 10:37 70 107/60 02/27/24 10:33 77 97 02/27/24 10:28 80 96 02/27/24 10:23 104 H 100 02/27/24 10:22 82 103/58 L 02/27/24 10:18 87 98 02/27/24 10:13 79 97 02/27/24 10:08 73 96 02/27/24 10:06 77 108/61 02/27/24 10:03 83 96 02/27/24 09:58 82 97 02/27/24 09:53 84 98 02/27/24 09:52 85 122/50 L 02/27/24 09:48 93 H 99 02/27/24 09:45 20 02/27/24 09:45 98.4 F 20 02/27/24 09:43 82 97 02/27/24 09:38 86 96 02/27/24 09:36 76 108/57 L 02/27/24 09:33 84 96 02/27/24 09:28 78 97 02/27/24 09:23 80 99 02/27/24 09:21 76 103/54 L 02/27/24 09:18 87 97 02/27/24 09:15 20 02/27/24 09:15 20 02/27/24 09:13 86 98 02/27/24 09:08 81 95 02/27/24 09:06 73 98/53 L 02/27/24 09:03 79 94 02/27/24 08:58 77 95 02/27/24 08:53 73 94 02/27/24 08:51 80 105/59 L 02/27/24 08:48 75 95 02/27/24 08:45 20 02/27/24 08:45 20 02/27/24 08:43 78 94 02/27/24 08:38 80 96 02/27/24 08:36 77 104/59 L 02/27/24 08:33 71 97 02/27/24 08:28 84 96 02/27/24 08:23 83 98 02/27/24 08:22 78 104/65 02/27/24 08:18 85 97 02/27/24 08:13 90 98 02/27/24 08:08 80 99 02/27/24 08:06 80 130/97 02/27/24 08:03 72 96 02/27/24 07:58 70 96 02/27/24 07:53 70 96 02/27/24 07:52 68 99/51 L 02/27/24 07:48 77 96 02/27/24 07:45 20 02/27/24 07:45 20 02/27/24 07:43 72 96 02/27/24 07:38 69 97 02/27/24 07:36 68 104/55 L 02/27/24 07:33 104 H 97 02/27/24 07:31 71 94 02/27/24 07:28 85 97 02/27/24 07:23 112 H 100 02/27/24 07:21 76 104/60 02/27/24 07:18 105 H 99 02/27/24 07:15 20 02/27/24 07:15 98.1 F 20 02/27/24 07:13 91 H 96 02/27/24 07:08 96 H 97 02/27/24 07:07 80 98/55 L 02/27/24 07:04 94 H 93 02/27/24 07:03 88 96 02/27/24 07:00 16 02/27/24 07:00 16 02/27/24 06:58 74 94 02/27/24 06:53 83 97 02/27/24 06:52 95 H 96/51 L 02/27/24 06:48 93 H 96 02/27/24 06:43 103 H 97 02/27/24 06:38 99 H 98 02/27/24 06:37 77 98/55 L 02/27/24 06:36 76 94 02/27/24 06:33 116 H 96 02/27/24 06:30 16 02/27/24 06:30 16 02/27/24 06:28 88 97 02/27/24 06:23 78 97 02/27/24 06:21 111 H 102/58 L 02/27/24 06:18 77 98 02/27/24 06:13 75 97 02/27/24 06:08 100 H 99 02/27/24 06:06 82 99/62 L 02/27/24 06:03 73 97 02/27/24 06:00 02/27/24 06:00 02/27/24 05:58 87 97 02/27/24 05:53 80 98 02/27/24 05:51 75 89/51 L 02/27/24 05:48 86 97 02/27/24 05:43 105 H 99 02/27/24 05:38 88 98 02/27/24 05:37 80 95/52 L 02/27/24 05:33 72 95 02/27/24 05:30 16 02/27/24 05:30 16 02/27/24 05:28 74 95 02/27/24 05:23 90 97 02/27/24 05:22 78 95/54 L 02/27/24 05:18 82 95 02/27/24 05:17 77 94 02/27/24 05:13 76 95 02/27/24 05:08 77 95 09/10/24 05:06 81 97/50 L 02/27/24 05:03 80 96 02/27/24 05:00 16 02/27/24 05:00 98.2 F 16 02/27/24 04:58 71 96 02/27/24 04:53 73 96 02/27/24 04:51 77 99/52 L 02/27/24 04:49 104 H 93 02/27/24 04:48 89 95 02/27/24 04:43 95 02/27/24 04:43 76 02/27/24 04:43 75 94 Coding Level of Care Code None Diagnoses Encounter for induction of labor Z34.90
[2024-02-27] MEDS: ACETAMINOPHEN 325 MG TAB PO PRN (18:29)
--- NOTE | 2024-02-27 20:32 | Labor Progress Brief Note ---
Date of Service February 27, 2024 Subjective feels pressure Assessment & Plan (1) Encounter for induction of labor: Plan will try to reposition to push, fhts categ 1. Admission and Anticipated Discharge Date Admission Date: February 26, 2024 Physical Exam Constitutional: WD/WN, vitals as above Genitourinary: Manual OB Exam: + cervical dilation (small ant lip, reduced with pushing), + cervical effacement 100% and + station + 1 OB Exam Monitor Tracing: + scalp electrode used, + intra-uterine pressure catheter used, + category I and + normal FHT variability will cont 2nd stage, try to reposition to keep lip away and reexamine Results & Data Vital Signs (Past 12 Hours) Vital Signs Temp Pulse Resp BP Pulse Ox 02/27/24 20:28 106 H 96 02/27/24 20:23 96 H 97 02/27/24 20:19 90 118/69 02/27/24 20:18 96 02/27/24 20:18 89 02/27/24 20:18 80 116/60 02/27/24 20:13 123 H 96 02/27/24 20:08 78 96 02/27/24 20:06 89 111/55 L 02/27/24 20:03 99 H 94 02/27/24 19:58 85 96 02/27/24 19:53 78 96 02/27/24 19:52 85 108/59 L 02/27/24 19:48 81 96 02/27/24 19:43 90 97 02/27/24 19:38 96 H 96 02/27/24 19:36 90 118/70 02/27/24 19:33 86 95 02/27/24 19:28 96 H 97 02/27/24 19:23 93 H 98 02/27/24 19:21 81 107/59 L 02/27/24 19:18 87 96 02/27/24 19:13 87 97 02/27/24 19:09 98.6 F 18 02/27/24 19:08 90 99 02/27/24 19:07 90 116/68 02/27/24 19:03 80 99 02/27/24 18:58 81 99 02/27/24 18:53 88 97 02/27/24 18:51 88 114/68 02/27/24 18:48 90 95 02/27/24 18:43 85 99 02/27/24 18:38 78 99 02/27/24 18:36 85 100/58 L 02/27/24 18:35 20 02/27/24 18:35 20 02/27/24 18:33 80 99 02/27/24 18:28 86 99 02/27/24 18:23 80 98 02/27/24 18:22 100 H 98/64 L 02/27/24 18:18 96 H 99 02/27/24 18:13 79 98 02/27/24 18:08 81 96 02/27/24 18:06 85 119/58 L 02/27/24 18:03 85 99 02/27/24 18:01 20 02/27/24 18:01 20 02/27/24 17:58 79 96 02/27/24 17:53 85 96 02/27/24 17:51 85 108/58 L 02/27/24 17:48 83 96 02/27/24 17:43 79 97 02/27/24 17:38 102 H 98 02/27/24 17:36 93 H 126/68 02/27/24 17:33 96 H 99 02/27/24 17:28 80 98 02/27/24 17:23 91 H 97 02/27/24 17:21 92 H 113/59 L 02/27/24 17:18 95 H 98 02/27/24 17:15 20 02/27/24 17:15 20 02/27/24 17:13 96 H 98 02/27/24 17:08 86 98 02/27/24 17:06 83 113/59 L 02/27/24 17:03 83 99 02/27/24 16:58 90 99 02/27/24 16:53 105 H 97 02/27/24 16:51 93 H 110/63 02/27/24 16:48 79 97 02/27/24 16:45 20 02/27/24 16:45 98.6 F 20 02/27/24 16:43 87 97 02/27/24 16:38 89 98 02/27/24 16:37 101 H 113/75 02/27/24 16:33 89 98 02/27/24 16:28 75 95 02/27/24 16:23 79 96 02/27/24 16:21 78 111/58 L 02/27/24 16:18 73 96 02/27/24 16:15 20 02/27/24 16:15 20 02/27/24 16:13 68 95 02/27/24 16:08 70 96 02/27/24 16:06 80 118/59 L 02/27/24 16:03 80 96 02/27/24 15:58 70 97 02/27/24 15:53 70 97 02/27/24 15:52 78 107/57 L 02/27/24 15:48 75 97 02/27/24 15:43 77 98 02/27/24 15:38 83 98 02/27/24 15:37 75 98/51 L 02/27/24 15:33 72 98 02/27/24 15:28 72 99 02/27/24 15:23 82 99 02/27/24 15:22 73 100/59 L 02/27/24 15:18 72 99 02/27/24 15:15 20 02/27/24 15:15 98.4 F 20 02/27/24 15:13 77 98 02/27/24 15:08 72 97 02/27/24 15:06 70 97/54 L 02/27/24 15:03 78 98 02/27/24 14:58 80 98 02/27/24 14:53 78 98 02/27/24 14:52 71 94/52 L 02/27/24 14:48 72 98 02/27/24 14:43 99 02/27/24 14:43 71 02/27/24 14:43 71 110/52 L 02/27/24 14:38 82 99 02/27/24 14:33 81 99 02/27/24 14:28 82 97 02/27/24 14:23 79 98 02/27/24 14:21 75 101/59 L 02/27/24 14:18 73 96 02/27/24 14:15 20 02/27/24 14:15 20 02/27/24 14:13 70 96 02/27/24 14:08 80 96 02/27/24 14:07 71 109/53 L 02/27/24 14:03 70 97 02/27/24 13:58 71 98 02/27/24 13:53 94 H 97 02/27/24 13:52 83 119/56 L 02/27/24 13:48 73 98 09/10/24 13:45 20 02/27/24 13:45 20 02/27/24 13:43 82 100 02/27/24 13:38 88 97 02/27/24 13:37 72 106/54 L 02/27/24 13:35 98.1 F 02/27/24 13:33 70 100 02/27/24 13:28 68 98 02/27/24 13:23 73 99 02/27/24 13:21 84 87/53 L 02/27/24 13:18 75 98 02/27/24 13:15 20 02/27/24 13:15 20 02/27/24 13:13 72 99 02/27/24 13:08 77 99 02/27/24 13:07 71 92/50 L 02/27/24 13:03 73 96 02/27/24 12:58 76 98 02/27/24 12:53 70 97 02/27/24 12:51 73 84/46 L 02/27/24 12:48 70 95 02/27/24 12:43 72 96 02/27/24 12:38 69 96 02/27/24 12:37 71 94/50 L 02/27/24 12:33 72 95 02/27/24 12:28 71 95 02/27/24 12:23 70 96 02/27/24 12:21 67 88/53 L 02/27/24 12:18 71 96 02/27/24 12:13 74 95 02/27/24 12:08 68 95 02/27/24 12:06 63 89/52 L 02/27/24 12:03 70 95 02/27/24 11:58 76 96 02/27/24 11:53 74 96 02/27/24 11:51 71 97/52 L 02/27/24 11:48 83 99 02/27/24 11:43 80 99 02/27/24 11:38 98 02/27/24 11:38 83 02/27/24 11:38 82 115/61 02/27/24 11:33 76 98 02/27/24 11:28 79 98 02/27/24 11:23 79 98 02/27/24 11:21 71 109/56 L 02/27/24 11:18 89 97 02/27/24 11:15 20 02/27/24 11:15 98.2 F 20 02/27/24 11:13 68 97 02/27/24 11:08 78 98 02/27/24 11:07 92 H 108/72 02/27/24 11:03 79 98 02/27/24 10:58 81 98 02/27/24 10:53 71 97 02/27/24 10:52 77 106/60 02/27/24 10:48 78 98 02/27/24 10:45 20 02/27/24 10:45 20 02/27/24 10:43 80 98 02/27/24 10:38 76 96 02/27/24 10:37 70 107/60 02/27/24 10:33 77 97 02/27/24 10:28 80 96 02/27/24 10:23 104 H 100 02/27/24 10:22 82 103/58 L 02/27/24 10:18 87 98 02/27/24 10:13 79 97 02/27/24 10:08 73 96 02/27/24 10:06 77 108/61 02/27/24 10:03 83 96 02/27/24 09:58 82 97 02/27/24 09:53 84 98 02/27/24 09:52 85 122/50 L 02/27/24 09:48 93 H 99 02/27/24 09:45 20 02/27/24 09:45 98.4 F 20 02/27/24 09:43 82 97 02/27/24 09:38 86 96 02/27/24 09:36 76 108/57 L 02/27/24 09:33 84 96 02/27/24 09:28 78 97 02/27/24 09:23 80 99 02/27/24 09:21 76 103/54 L 02/27/24 09:18 87 97 02/27/24 09:15 20 02/27/24 09:15 20 02/27/24 09:13 86 98 02/27/24 09:08 81 95 02/27/24 09:06 73 98/53 L 02/27/24 09:03 79 94 02/27/24 08:58 77 95 02/27/24 08:53 73 94 02/27/24 08:51 80 105/59 L 02/27/24 08:48 75 95 02/27/24 08:45 20 02/27/24 08:45 20 02/27/24 08:43 78 94 02/27/24 08:38 80 96 02/27/24 08:36 77 104/59 L 02/27/24 08:33 71 97 Coding Level of Care Code None Diagnoses Encounter for induction of labor Z34.90
[2024-02-27] MEDS: miSOPROStoL 200 MCG TAB PR ONE (22:08)
--- NOTE | 2024-02-27 22:18 | Delivery Summary ---
Vaginal Delivery Summary Date of Service February 27, 2024 Vaginal Delivery Summary The patient dilated to complete and pushed to deliver a viable male infant Apgars 7 and 9 via over intact perineum. Mouth and nose bulb suctioned at perineum. Shoulders and body delivered with ease. Infant was vigorous and crying at . Cord clamped at 30 seconds of life and infant to maternal abdomen where the cord was then doubly clamped and cut. Placenta delivered spontaneously and intact, three-vessel cord. Hemostasis achieved with dilute pitocin and uterine massage and drainage of the bladder for approximately 50 cc under sterile conditions. Due to long course of pitocin, 1000mcg rectal cytotec also given. Cervix and sulci intact. EBL 200 cc. Mother and baby stable in recovery. [facility] Vaginal Delivery Charge Delivery Type Details:
[2024-02-27] MEDS ORDERED: BENZOCAINE 20% SPRY 85 APPLN/85 GM CAN EXT PRN (22:36)
[2024-02-27] MEDS ORDERED: OXYTOCIN 30 UNITS/NSS 30 UNITS/500 ML BAG IV PRN (22:36)
[2024-02-27] MEDS ORDERED: DIPHTHER/TETAN/PERTUS Vaccine (Tdap, Adol/Adult) 0.5mL IM ONE (22:36)
[2024-02-27] MEDS ORDERED: oxyCODONE/ACETAMINOPHEN 5mg/325mg TAB PO PRN (22:36)
[2024-02-27] MEDS ORDERED: HYDROCORTISONE ACETATE 25 MG SUPP PR PRN (22:36)
[2024-02-27] MEDS: OXYTOCIN 20 UNITS/LR 1,002 ML IV SCH (23:00)
[2024-02-27] MEDS: ePHEDrine sulfate 50 MG/ML AMP ONE (23:51)
[2024-02-27] MEDS: METHYLERGONOVINE MALEATE 0.2 MG/ML AMP ONE (23:52)
[2024-02-28] MEDS: IBUPROFEN 600 MG TAB PO PRN (00:03)
[2024-02-28] MEDS: ACETAMINOPHEN 325 MG TAB PO PRN (01:17)
[2024-02-28] MEDS: miSOPROStoL 200 MCG TAB ONE (01:21)
--- NOTE | 2024-02-28 04:57 | Anesthesia Procedure Note ---
Date of Service February 28, 2024 Anesthesia Post Epidural Note Vital Signs Vital Signs: Temp Pulse Resp BP Pulse Ox O2 Del Method 37.2 C 84 18 100/59 L 97 Room Air 02/28/24 03:05 02/28/24 03:05 02/28/24 03:05 02/28/24 03:05 02/28/24 03:05 02/28/24 03:05 Pain Intensity Lower Perineal: Pain Intensity: 5 Bilateral Abdomen: Pain Intensity: 3 Notes Mental Status: alert / awake / arousable Nausea / Vomiting: adequately controlled Pain: adequately controlled Airway Patency, RR, SpO2: stable & adequate BP & HR: stable & adequate Hydration State: stable & adequate Neuraxial Anesthesia: was administered and sensory block is resolving Anesthetic Complications: no major complications apparent and Pt Satisfied with anesthetic care Epidural: Removed without complications and With tip intact
--- NOTE | 2024-02-28 05:56 | Obstetrical Progress Note ---
Date of Service February 28, 2024 Assessment & Plan (1) Encounter for care and examination after delivery: (2) Encounter for supervision of normal in multigravida: (3) Need for rhogam due to Rh negative mother: Plan Pt is 29 yo post- day 1 s/p at 40w0d. complicated by Rh negative mother. Patient is doing well this morning Encourage ambulation and breast feeding Ibuprofen 600mg PRN q4h and Tylenol 650mg PRN q6h for pain control Monitor vitals and Hgb Upon discharge, pt to follow up with Dr. Martinez in 6 weeks. Admission and Anticipated Discharge Date Admission Date: February 26, 2024 Supervising Physician Co-Signing Physician Notes Resident Physician Supervision Note: I was present with Dr. Powell during the history and exam. I discussed the case with the resident and agree with the findings and plan as documented in the note. Any exceptions or clarifications are listed here: stable doing well. abd soft ff 2 down nt, ext nt calves. ppd#1 s/p . routine care. Documented By: Julissa Martinez MD, FACOG Subjective Pt is 29 yo post- day 1 s/p at 40w0d. complicated by Rh negative mother. Ambulation:In room Voiding:voiding normally Passing gas: yes BM: no Diet tolerance:regular diet Lochia:bloody, no clots Feeding type: breast Current pain level: 4 /10 improved with ibuprofen and tylenol Resting comfortably this morning in NAD. Denies MACK, CP, SOB, N/V/D, LE pain/swelling. Review of Systems Review of Systems: As per HPI Physical Exam Constitutional: WD/WN, vitals as above Respiratory: normal respiratory effort, lungs clear to auscultation Cardiovascular: RRR, no murmur, no edema Gastrointestinal (Abdomen): normal bowel sounds, soft, nontender, no hepatosplenomegaly Uterine fundus firm and at 1 cm above level of umbilicus Neurologic: PERRL, EOMI, accommodation nl, no face palsy, no dysarthria Moving all 4 extremities on command Psychiatric: A+Ox3, euthymic affect Results & Data Vital Signs (Past 12 Hours) Vital Signs Temp Pulse Pulse Resp BP BP Pulse Ox 02/28/24 03:05 37.2 C 84 18 100/59 L 97 02/28/24 01:12 18 02/28/24 01:05 37.4 C 84 16 105/68 97 02/28/24 00:43 91 H 110/61 02/28/24 00:22 92 H 105/59 L 02/28/24 00:19 77 94/56 L 02/28/24 00:10 18 02/28/24 00:07 93 H 85/54 L 02/27/24 23:52 86 102/54 L 02/27/24 23:40 18 02/27/24 23:37 86 99/54 L 02/27/24 23:29 18 02/27/24 23:22 76 100/59 L 02/27/24 23:10 18 02/27/24 23:07 83 110/59 L 02/27/24 22:55 37.5 C 18 02/27/24 22:52 93 H 121/58 L 02/27/24 22:40 18 02/27/24 22:37 90 113/63 02/27/24 22:23 96 H 96 02/27/24 22:21 96 H 116/62 02/27/24 22:18 95 H 97 02/27/24 22:13 101 H 97 02/27/24 22:08 94 H 97 02/27/24 22:03 98 H 97 02/27/24 21:58 102 H 95 02/27/24 21:53 109 H 95 02/27/24 21:48 112 H 96 02/27/24 21:43 107 H 95 02/27/24 21:38 120 H 95 02/27/24 21:33 111 H 116/60 95 02/27/24 21:28 110 H 95 02/27/24 21:23 102 H 95 02/27/24 21:18 101 H 95 02/27/24 21:13 120 H 95 02/27/24 21:10 37.2 C 02/27/24 21:08 122 H 96 02/27/24 21:04 93 H 117/55 L 02/27/24 21:03 109 H 95 02/27/24 20:58 107 H 96 02/27/24 20:53 113 H 97 02/27/24 20:48 92 H 96 02/27/24 20:43 105 H 95 02/27/24 20:38 100 H 97 02/27/24 20:33 98 H 95 02/27/24 20:28 106 H 96 02/27/24 20:23 96 H 97 02/27/24 20:19 90 118/69 02/27/24 20:18 96 02/27/24 20:18 89 02/27/24 20:18 80 116/60 02/27/24 20:13 123 H 96 02/27/24 20:08 78 96 02/27/24 20:06 89 111/55 L 02/27/24 20:03 99 H 94 02/27/24 19:58 85 96 02/27/24 19:53 78 96 02/27/24 19:52 85 108/59 L 02/27/24 19:48 81 96 02/27/24 19:43 90 97 02/27/24 19:38 96 H 96 02/27/24 19:36 90 118/70 02/27/24 19:33 86 95 02/27/24 19:28 96 H 97 02/27/24 19:23 93 H 98 02/27/24 19:21 81 107/59 L 02/27/24 19:18 87 96 02/27/24 19:13 87 97 02/27/24 19:09 37.0 C 18 02/27/24 19:08 90 99 02/27/24 19:07 90 116/68 02/27/24 19:03 80 99 02/27/24 18:58 81 99 02/27/24 18:53 88 97 02/27/24 18:51 88 114/68 02/27/24 18:48 90 95 02/27/24 18:43 85 99 02/27/24 18:38 78 99 02/27/24 18:36 85 100/58 L 02/27/24 18:35 20 02/27/24 18:35 20 02/27/24 18:33 80 99 02/27/24 18:28 86 99 02/27/24 18:23 80 98 02/27/24 18:22 100 H 98/64 L 02/27/24 18:18 96 H 99 02/27/24 18:13 79 98 02/27/24 18:08 81 96 02/27/24 18:06 85 119/58 L 02/27/24 18:03 85 99 02/27/24 18:01 20 02/27/24 18:01 20 02/27/24 17:58 79 96 02/27/24 17:53 85 96 02/27/24 17:51 85 108/58 L O2 Del Method 02/28/24 03:05 Room Air 02/28/24 01:12 02/28/24 01:05 Room Air 02/28/24 00:43 02/28/24 00:22 02/28/24 00:19 02/28/24 00:10 02/28/24 00:07 02/27/24 23:52 02/27/24 23:40 02/27/24 23:37 02/27/24 23:29 02/27/24 23:22 02/27/24 23:10 02/27/24 23:07 02/27/24 22:55 02/27/24 22:52 02/27/24 22:40 02/27/24 22:37 02/27/24 22:23 02/27/24 22:21 02/27/24 22:18 02/27/24 22:13 02/27/24 22:08 02/27/24 22:03 02/27/24 21:58 02/27/24 21:53 02/27/24 21:48 02/27/24 21:43 02/27/24 21:38 02/27/24 21:33 02/27/24 21:28 02/27/24 21:23 02/27/24 21:18 02/27/24 21:13 02/27/24 21:10 02/27/24 21:08 02/27/24 21:04 02/27/24 21:03 02/27/24 20:58 02/27/24 20:53 02/27/24 20:48 02/27/24 20:43 02/27/24 20:38 02/27/24 20:33 02/27/24 20:28 02/27/24 20:23 02/27/24 20:19 02/27/24 20:18 02/27/24 20:18 02/27/24 20:18 02/27/24 20:13 02/27/24 20:08 02/27/24 20:06 02/27/24 20:03 02/27/24 19:58 02/27/24 19:53 02/27/24 19:52 02/27/24 19:48 02/27/24 19:43 02/27/24 19:38 02/27/24 19:36 02/27/24 19:33 02/27/24 19:28 02/27/24 19:23 02/27/24 19:21 02/27/24 19:18 02/27/24 19:13 02/27/24 19:09 02/27/24 19:08 02/27/24 19:07 02/27/24 19:03 02/27/24 18:58 02/27/24 18:53 02/27/24 18:51 02/27/24 18:48 02/27/24 18:43 02/27/24 18:38 02/27/24 18:36 02/27/24 18:35 02/27/24 18:35 02/27/24 18:33 02/27/24 18:28 02/27/24 18:23 02/27/24 18:22 02/27/24 18:18 02/27/24 18:13 02/27/24 18:08 02/27/24 18:06 02/27/24 18:03 02/27/24 18:01 02/27/24 18:01 02/27/24 17:58 02/27/24 17:53 02/27/24 17:51 Resident Activity Tracking Resident Involvement: Resident Care Provided Care Provided: Adult Hospital Medicine
[2024-02-28] MEDS: DOCUSATE SODIUM 100 MG CAP PO SCH (07:49)
[2024-02-28] MEDS: PRENATAL VITAMIN 1 TAB PO SCH (07:49)
[2024-02-28] MEDS: bisacodyL 5 MG TABEC PO SCH (21:52)
--- NOTE | 2024-02-29 05:26 | Obstetrical Progress Note ---
Date of Service February 29, 2024 Assessment & Plan (1) Encounter for care and examination after delivery: (2) Encounter for supervision of normal in multigravida: (3) Need for rhogam due to Rh negative mother: Plan Pt is 29 yo post- day 2 s/p at 40w0d. complicated by Rh negative mother. Patient is doing well this morning Encourage ambulation and breast feeding Ibuprofen 600mg PRN q4h and Tylenol 650mg PRN q6h for pain control Monitor vitals and Hgb Pt to discharge today, pt to follow up with Dr. Martinez in 6 weeks. Admission and Anticipated Discharge Date Admission Date: February 26, 2024 Supervising Physician Co-Signing Physician Notes Resident Physician Supervision Note: I interviewed and examined the patient. Discussed with Dr. Powell and agree with findings and plan as documented in the note. Any exceptions or clarifications are listed here: PPD#2 doing well. Taking stool softeners. DC home today. Reviewed DC instructions, followup in office 6w PP. Documented By: Blanka Freitas, Subjective Pt is 29 yo post- day 2 s/p at 40w0d. complicated by Rh negative mother. Ambulation:In room Voiding:voiding normally Passing gas: yes BM: small amount Diet tolerance:regular diet Lochia:bloody, no clots Feeding type: breast Current pain level: 3-4/10 improved with ibuprofen and tylenol Resting comfortably this morning in NAD. Denies MACK, CP, SOB, N/V/D, LE pain/swelling. Review of Systems Review of Systems: As per HPI Physical Exam Constitutional: WD/WN, vitals as above Respiratory: normal respiratory effort, lungs clear to auscultation Cardiovascular: RRR, no murmur, no edema Gastrointestinal (Abdomen): normal bowel sounds, soft, nontender, no hepatosplenomegaly Uterine fundus is firm 1-2cm below umbilicus Neurologic: PERRL, EOMI, accommodation nl, no face palsy, no dysarthria Psychiatric: A+Ox3, euthymic affect Results & Data Vital Signs (Past 12 Hours) Vital Signs Temp Pulse Resp BP Pulse Ox O2 Del Method 02/28/24 23:45 36.5 C 70 20 99/61 L 97 Room Air 02/28/24 20:00 36.8 C 71 20 107/68 95 Room Air Resident Activity Tracking Resident Involvement: Resident Care Provided Care Provided: Adult Hospital Medicine
[2024-02-29 08:54] VITALS: BP 121/83; PULSE 77; RESP 16; TEMP 97.5; O2SAT 98
== END 2024-02-29 12:37 | disposition home or self-care (01) | DRG 807 ==
LOC: 4S1 12:06 → 4E2 02-28 02:14
DX: Z3A.39 39 weeks gestation of pregnancy; Z37.0 Single live birth; Z67.11 Type A blood, Rh negative; O26.893 Other specified pregnancy related conditions, third trimester; Z88.8 Allergy status to other drugs, medicaments and biological substances; Z88.5 Allergy status to narcotic agent